=== PATIENT | female | born 1940 | race Caucasian/White ===

== ENCOUNTER 2021-01-09 20:52 | Outpatient (RCR) | payer MEDICARE, OTHER, SELFPAY ==
[2021-01-09] MEDS: COVID-19 VACC, MRNA(PFIZER)/PF 30 MCG/0.3 ML SYRINGE IM (19:08)
[2021-02-09] MEDS: COVID-19 VACC, MRNA(PFIZER)/PF 30 MCG/0.3 ML SYRINGE IM (17:28)
== END 2021-01-09 23:59 ==
LOC: IMMUN 20:52
PROVIDERS: PCP Family Medicine; Visit Provider Family Medicine
DX: Z23 Encounter for immunization (principal)
CPT/HCPCS: 0001A; 0002A; 91300

== ENCOUNTER 2024-02-07 14:36 | Inpatient (IN) | payer MEDICARE, OTHER, SELFPAY ==
[2024-02-07] VITALS (9 sets, daily range): BP systolic 103–131; BP diastolic 55–95; PULSE 59–110; RESP 16–18; TEMP 36.1–36.4; O2SAT 94–100; BMI 17.9; BMI 16.9
--- NOTE | 2024-02-07 14:51 | EDS_ITS ---
HPI History of Present Illness Chief Complaint: General Illness Detail of Chief Complaint: Increased confusion, elevated blood sugars and concern for UTI Informant: patient and family Narrative Narrative: Patient brought to the emergency department with increased weakness and confusion for couple of days. Decreased p.o. intake. Family states that she gets frequent urinary tract infections. Her blood sugar today was over 500 and she does take oral medications. Patient also has history of chronic kidney disease. Family aware that she is getting dehydrated. Patient denies abdominal pain. She denies chest pain. She denies dysuria. PFSH PFS Home Medications alendronate 70 mg tablet 70 mg PO QWEEK 02/07/24 [History Last Taken 02/06/24] fluticasone propionate 50 mcg/actuation nasal spray,suspension 2 spray intranasal DAILY 02/07/24 [History Last Taken 02/06/24] levothyroxine 50 mcg tablet 50 mcg PO DAILY 02/07/24 [History Last Taken 0 02/06/24] lisinopril 2.5 mg tablet 2.5 mg PO DAILY 02/07/24 [History Last Taken 02/06/24] loratadine 10 mg tablet (Allerclear) 10 mg PO DAILY allergy 02/07/24 [History Last Taken 02/06/24] metformin 500 mg tablet 500 mg PO BID 02/07/24 [History Last Taken 02/06/24] metoprolol tartrate 25 mg tablet 12.5 mg PO BID 02/07/24 [History Last Taken 02/06/24] mometasone 0.1 % topical cream 1 applic topical DAILY 02/07/24 [History Last Taken 02/06/24] semaglutide 3 mg tablet (Rybelsus) 3 mg PO DAILY 02/07/24 [History Last Taken 02/06/24] simvastatin 20 mg tablet 20 mg PO QPM 02/07/24 [History Last Taken 02/06/24] Allergy/AdvReac Type Severity Reaction Status Date / Time ciprofloxacin Allergy Unknown Other Verified 02/07/24 14:38 amoxicillin Allergy Rash Verified 02/07/24 14:38 sulfamethoxazole Allergy Rash Verified 02/07/24 14:38 [From Bactrim] trimethoprim [From Bactrim] Allergy Rash Verified 02/07/24 14:38 diphenhydramine AdvReac Itching Verified 02/07/24 14:38 [From Benadryl] Social History Smoking Status: Never smoker ROS ROS ED Review of Systems ROS Unobtainable: other Constitutional Constitutional ED: Reports lethargy; Denies chills, fever(s), sweats or weight loss Eyes Eyes: Denies blurry vision, change in vision or diplopia ENT ENT ED: Denies rhinorrhea or sore throat Cardiovascular Cardiovascular: Denies chest pain, orthopnea or racing heartbeat Respiratory/Chest Respiratory/Chest: Denies cough, dyspnea, dyspnea on exertion, orthopnea or sputum Gastrointestinal Gastrointestinal: Denies abdominal pain, diarrhea, nausea or vomiting Genitourinary Genitourinary ED: Denies dysuria, hematuria or urinary frequency Musculoskeletal Musculoskeletal: Denies arthralgias, back pain, myalgias or neck pain Integumentary Denies abscess, Abrasions or rash Neurologic Neurologic: Reports weakness and other Details: Confusion ; Denies headache(s) Psychiatric Psychiatric: Denies anxiety, depression or suicidal thoughts Endocrine Endocrinology: Denies polydipsia, polyphagia or polyuria Hematologic/Lymphatic Hematologic/Lymphatic: Denies easy bleeding, easy bruising or lymphadenopathy Allergic/Immunologic Allergic/Immunologic ED: Denies mouth swelling, tongue swelling or urticaria EXAM Physical Exam Const Vital Signs: 02/07/24 14:38 02/07/24 16:13 02/07/24 16:51 Temperature 97.3 F L 97.4 F L Temperature Source Temporal Oral Pulse Rate 110 H 83 Respiratory Rate 16 16 Respiratory Effort Normal Non-Labored Respiratory Pattern Normal Blood Pressure 111/95 H 131/59 H Blood Pressure Mean 100 83 Pulse Ox 100 98 Oxygen Delivery Method Room Air Room Air 02/07/24 16:54 02/07/24 16:37 Temperature 97.4 F L Temperature Source Pulse Rate 83 59 L Respiratory Rate 16 16 Respiratory Effort Respiratory Pattern Blood Pressure 131/59 H 131/59 H Blood Pressure Mean 83 83 Pulse Ox 99 94 Oxygen Delivery Method Room Air Positive well nourished and well developed General Appearance ED: well developed and NAD HEENT Reports TM's clear and moist mucous membranes HEENT Narrative: Patient hard of hearing normocephalic and atraumatic; Negative for trauma or tenderness Tympanic Membrane ED: Yes TM's clear Eyes PERRL and EOMs intact bilaterally General Eye ED: Negative for pale conjunctiva or scleral icterus Neck no lymphadenopathy, supple and no JVD General: Negative for tenderness Chest Wall inspection of chest normal and palpation of chest normal Chest: Negative for tenderness Resp normal respiratory effort and clear to auscultation bilaterally Effort and Inspection: Negative for respiratory distress or pain with movement Auscultation: Negative for rhonchi, wheezes or diminished lung sounds Cardio regular rate, regular rhythm, S1 normal heart sound, S2 normal heart sound and no murmurs Peripheral Pulses: pulses 2+ throughout GI normal to inspection, nondistended, normoactive bowel sounds, soft to palpation, non-tender, non-distended and no masses Back/Spine no CVA tenderness and no thoracic nor lumbar tenderness Extremity normal to inspection General Extremety ED: Negative for edema General Extremity: Negative for edema Neuro oriented x3, CN's II-XII intact bilaterally, no sensory deficits noted and gait normal Sensorium / Orientation: awake, alert, oriented to person, oriented to place and oriented to time Motor Exam: strength 5/5 throughout and strength abnormal Psych mental status grossly normal Skin no rashes or lesions noted and no wounds MDM MDM MDM Narrative Medical decision making narrative: Patient presents with generalized weakness and decreased p.o. intake with concern for UTI and dehydration. IV line established. CBC with differential count 15.1 with hemoglobin 12.5 and platelet count of 544. Chemistries showed a low sodium of 123 and a low chloride of 88. BUN 55 and creatinine 2.13. The glucose was 556. Urinalysis was positive for UTI. Urine culture sent. Patient started on Rocephin 1 g IV. Patient was ordered normal saline. Case discussed with hospitalist to evaluate patient for admission. I did give patient 12 units of regular insulin subcu. Lab Data Attestation: I reviewed the patient's lab results. Labs: Laboratory Results - last 24 hr 02/07/24 02/07/24 15:15 15:40 WBC 15.1 H RBC 4.72 Hgb 12.5 Hct 37.5 MCV 79.4 L MCH 26.5 L MCHC 33.3 RDW Std Deviation 39.1 RDW Coeff of Zander 13.5 Plt Count 544 H MPV 8.7 Immature Gran % (Auto) 1.300 H Neut % (Auto) 83.0 H Lymph % (Auto) 7.6 L [place] % (Auto) 7.6 Eos % (Auto) 0.3 Baso % (Auto) 0.2 Absolute Neuts (auto) 12.5 H Absolute Lymphs (auto) 1.15 Nucleated RBC % 0 Sodium 123 L Potassium 4.4 Chloride 88 L Carbon Dioxide 23.0 Anion Gap 12 BUN 55 H Creatinine 2.13 H Est GFR (MDRD) Af Amer 28 L Est GFR (MDRD) Non-Af 24 L BUN/Creatinine Ratio 25.8 H Glucose 556 H* Hemoglobin A1c 13.6 H Lactic Acid 1.7 Calcium 10.3 H Urine Color Yellow Urine Clarity Cloudy Urine pH 5.0 Ur Specific [place] 1.010 Urine Protein 30 H Urine Glucose (UA) 1000 H Urine Ketones 15 H Urine Occult Blood 250 H Urine Nitrite Negative Urine Bilirubin Negative Urine Urobilinogen Normal Ur Leukocyte Esterase 500 H Urine RBC 10-25 SEEN Urine WBC >100 SEEN Ur Squamous Epith Cells 0 SEEN Urine Bacteria 2+ Urine Mucus 0 SEEN Ur Random Sodium 51 Discharge Plan Dx/Rx/DC Orders Clinical Impression: ANJANA (acute kidney injury), Hyperglycemia, Hyponatremia, Acute UTI Disposition Disposition: Acute Care Hospital [facility] Discharge Date/Time: 02/07/24 17:45
[2024-02-07 15:24] LABS: Absolute Lymphocyte Count 1.15 X10^3/uL (0.83-4.51); Absolute Neutrophil Count 12.5 X10^3/uL (2.0-7.7); Basophil# 0.03 X10^3/uL; Basophil% 0.2 % (0-1); Eosinophil# 0.05 X10^3/uL; Eosinophils% 0.3 % (0-5); Hematocrit 37.5 % (37-47); Hemoglobin 12.5 g/dL (12.0-15.0); Lymphocyte # 1.15 X10^3/ul (0.83-4.51); Lymphocyte % 7.6 % (19-41); Mean Corp Hgb Conc 33.3 g/dL (32-36); Mean Corpuscular Hgb 26.5 pg (27.0-32.0); Mean Corpuscular Volume 79.4 fL (81-99); Mean Platelet Vol. 8.7 fl (6.2-12.0); Monocyte# 1.15 X10^3/uL; Monocyte% 7.6 % (0-10); NRBC Flagged by Analyzer 0 % (0-5); Neutrophil # 12.54 X10^3/uL (2.7-7.7); Platelet Count 544 K/mm3 (150-450); RBC Distribution Width CV 13.5 % (11.6-14.6); RBC Distribution Width SD 39.1 fl (35.1-43.9); Red Blood Count 4.72 M/mm3 (4.2-5.4); White Blood Count 15.1 K/mm3 (4.4-11.0)
[2024-02-07 15:52] LABS: Mucous, Urine 0 SEEN /hpf (<or=2+); Squamous Epithelial Cells - UA 0 SEEN /hpf (5-10)
[2024-02-07 15:52] LABS: Anion Gap 12 (5-15); BUN 55 mg/dL (7-18); BUN/Creat Ratio 25.8 RATIO (10-20); Calcium,Total 10.3 mg/dL (8.5-10.1); Chloride 88 mmol/L (98-107); Creatinine, Serum 2.13 mg/dL (0.55-1.02); EST Glomerular Filtration Rate 24 mL/min (>60); Est Glom Filt Rate - Afr Amer 28 mL/min (>60); Glucose 556 mg/dL (74-106); Lactic Acid 1.7 mmol/L (0.4-1.9); Potassium 4.4 mmol/L (3.5-5.1); Sodium Level 123 mmol/L (136-145)
[2024-02-07 15:55] LABS: Color, Urine Yellow (Yellow); Glucose, Dipstick 1000 mg/dl (Normal); Ketone-Dipstick 15 mg/dl (Negative); Leukocyte Esterase-Dipstick 500 /ul (Negative); Nitrite-Dipstick Negative (Negative); Occult Blood-Urine 250 /ul (Negative); Protein-Dipstick 30 mg/dl (Negative); Urine Bilirubin Dipstick Negative (Negative); Urine Clarity Cloudy (Clear); Urine Urobilinogen Normal (Normal)
[2024-02-07 16:05] LABS: Bacteria 2+ /hpf (None Seen); White Blood Cells >100 SEEN /hpf (0-5)
[2024-02-07 16:06] LABS: Red Blood Cells-Urine 10-25 SEEN /hpf (0-5)
--- NOTE | 2024-02-07 16:13 | PCM.HP.STD ---
HPI - General General Date of Admission: 02/07/24 Date of Service: 02/07/24 Chief Complaint: GENERALISED WEAKNESS, CONFUSION HPI Narrative KELSEY PURI, is a 83 F with a PMH as outlined who presents via the ED on 02/07/2024 with a complaint of general illness, increased confusion and concern for UTI. She had been getting more confused and weak at home. Family also noted she was having decreased oral intake. She denied any fever or chills, nausea or vomiting or any other symptoms. Family was concerned she was getting dehydrated. Review of systems was otherwise negative. VItals in the ED were BP of 111/95, IL of 110, RR of 16 and oxygn sats of 100% on room air. CBC showed Hb of 12.5, wbc of 15.1 and platelets of 544. Chemistry showed sodium of 123, potassiuim of 4.4 and Cr of 2.13. Blood glucose was 556 and calcium of 10.3. Urinalysis showed 2+ bacteria. She has been admitted to be managed for hyperglycemia as well as UTI and dehydration. [facility] Home Medications alendronate 70 mg tablet 70 mg PO QWEEK 02/07/24 [History Last Taken 02/06/24] fluticasone propionate 50 mcg/actuation nasal spray,suspension 2 spray intranasal DAILY 02/07/24 [History Last Taken 02/06/24] levothyroxine 50 mcg tablet 50 mcg PO DAILY 02/07/24 [History Last Taken 02/06/24] lisinopril 2.5 mg tablet 2.5 mg PO DAILY 02/07/24 [History Last Taken 02/06/24] loratadine 10 mg tablet (Allerclear) 10 mg PO DAILY 02/07/24 [History Last Taken 02/06/24] metformin 500 mg tablet 500 mg PO BID 02/07/24 [History Last Taken 02/06/24] metoprolol tartrate 25 mg tablet 12.5 mg PO BID 02/07/24 [History Last Taken 02/06/24] mometasone 0.1 % topical cream 1 applic topical DAILY 02/07/24 [History Last Taken 02/06/24] semaglutide 3 mg tablet (Rybelsus) 3 mg PO DAILY 02/07/24 [History Last Taken 02/06/24] simvastatin 20 mg tablet 20 mg PO QPM 02/07/24 [History Last Taken 02/06/24] Allergy/AdvReac Type Severity Reaction Status Date / Time ciprofloxacin Allergy Unknown Other Verified 02/07/24 14:38 amoxicillin Allergy Rash Verified 02/07/24 14:38 sulfamethoxazole Allergy Rash Verified 02/07/24 14:38 [From Bactrim] trimethoprim [From Bactrim] Allergy Rash Verified 02/07/24 14:38 diphenhydramine AdvReac Itching Verified 02/07/24 14:38 [From Benadryl] Social History Smoking Status: Never smoker ROS Review of Systems ROS Unobtainable: Denies due to encephalopathy Constitutional Constitutional: Reports anorexia, chills, fatigue, malaise and weakness; Denies change in weight or fever(s) Eyes Eyes: Denies change in vision ENT HEENT: Denies dysphagia Cardiovascular Cardiovascular: Reports rapid heart rate; Denies chest pain, dyspnea on exertion, edema, lightheadedness, orthopnea, palpitations or paroxysmal nocturnal dyspnea Respiratory/Chest Respiratory/Chest: Denies cough, dyspnea, hemoptysis, productive cough, shortness of breath at rest, shortness of breath with exertion or wheezing Gastrointestinal Gastrointestinal: Denies abdominal pain, constipation, diarrhea, dyspepsia, hematemesis, nausea or vomiting Genitourinary Genitourinary: Reports dysuria and urinary frequency; Denies burning urination, difficulty urinating, hematuria or nocturia Neurologic Neurologic: Reports confusion; Denies disequilibrium, dizziness, focal weakness, headache(s), numbness or paresthesias Psychiatric Psychiatric: Denies anxiety or depression Vital Signs Vital Signs Vital Signs: 02/07/24 14:38 Temperature 97.3 F L Temperature Source Temporal Pulse Rate 110 H Respiratory Rate 16 Blood Pressure 111/95 H Blood Pressure Mean 100 Pulse Ox 100 Oxygen Delivery Method Room Air Weight Weight: 91 lb 7.869 oz Body Mass Index (BMI) 17.9 Physical Exam Const alert and no apparent distress Constitutional Narrative: frail, weak, hard of hearing General Appearance: cooperative HEENT normocephalic, head/scalp atraumatic and oropharynx normal HEENT Narrative: dry oral mucosa Eyes PERRL, EOMs intact bilaterally and conjunctivae normal Neck no lymphadenopathy and supple Resp Resp Narrative: diminished breath sounds bibasally, no wheezes or crackles. On room air. Cardio regular rhythm, S1 normal heart sound, S2 normal heart sound and no murmurs Cardio Narrative: tachycardic GI normal to inspection, nondistended, normoactive bowel sounds, soft to palpation, non-tender and non-distended Extremity normal to inspection, full ROM and no clubbing, cyanosis or edema Neuro CN's II-XII intact bilaterally and moves all extremities Neuro Narrative: very hard of hearing Sensorium / Orientation: awake and alert Psych affect normal Results Lab / Micro Data 02/07/24 15:15 02/07/24 15:15 Labs: Laboratory Results - last 24 hr 02/07/24 15:15: WBC 15.1 H, RBC 4.72, Hgb 12.5, Hct 37.5, MCV 79.4 L, MCH 26.5 L, MCHC 33.3, RDW Std Deviation 39.1, RDW Coeff of Zander 13.5, Plt Count 544 H, MPV 8.7, Immature Gran % (Auto) 1.300 H, Neut % (Auto) 83.0 H, Lymph % (Auto) 7.6 L, [place] % (Auto) 7.6, Eos % (Auto) 0.3, Baso % (Auto) 0.2, Absolute Neuts (auto) 12.5 H, Absolute Lymphs (auto) 1.15, Nucleated RBC % 0, Sodium 123 L, Potassium 4.4, Chloride 88 L, Carbon Dioxide 23.0, Anion Gap 12, BUN 55 H, Creatinine 2.13 H, Est GFR (MDRD) Af Amer 28 L, Est GFR (MDRD) Non-Af 24 L, BUN/Creatinine Ratio 25.8 H, Glucose 556 H*, Lactic Acid 1.7, Calcium 10.3 H 02/07/24 15:40: Urine Color Yellow, Urine Clarity Cloudy, Urine pH 5.0, Ur Specific [place] 1.010, Urine Protein 30 H, Urine Glucose (UA) 1000 H, Urine Ketones 15 H, Urine Occult Blood 250 H, Urine Nitrite Negative, Urine Bilirubin Negative, Urine Urobilinogen Normal, Ur Leukocyte Esterase 500 H, Urine RBC 10-25 SEEN, Urine WBC >100 SEEN, Ur Squamous Epith Cells 0 SEEN, Urine Bacteria 2+, Urine Mucus 0 SEEN Assessment & Plan Assessment/Plan (1) Hyponatremia: (2) Hyperglycemia: (3) Acute UTI: (4) ANJANA (acute kidney injury): PLAN: Plan #Acute encephalopathy Likely multifactorial, due to hypoglycemia, ANJANA and UTI as well as hyponatremia Admitted with a complaint of lethargy and weakness as well as confusion. Blood sugar is 556. Anion gap not elevated with bicarb of 23 and anion gap of 12. Sodium is also 123 and she also has UTI. Admit to PCU. Hydrate aggressively with IV fluids. Started on IV ceftriaxone. Urine cultures ordered. Patient given subcu lispro in the ED. Will recheck blood sugar in an hour. Aggressive fluid hydration should help with hyperglycemia as well. Depending on how sugars trend will determine whether patient needs to be started on insulin drip or otherwise. PT OT consult. Fall precautions. #ANJANA: Patient apparently has a history of CKD and sees a circuit design engineer in [place]. However most recent blood work that patient had with showed that her creatinine was around 1.1. Creatinine here is 2.13. Hydrate with IV fluids and trend creatinine. If creatinine does not improve with hydration as this likely a prerenal ANJANA, will get further workup with urine electrolytes and renal ultrasound. #Hyperglycemia in a known diabetic: Being hydrated with fluids as above. Hold metformin. Continue semaglutide. SQ lispro 20 units x 1. Should improve with aggressive hydration. If not, may consider insulin drip. #UTI: Patient started on IV ceftriaxone. Urine cultures ordered. #Hyponatremia: Sodium is 123 though this is likely pseudohyponatremia in light of hypoglycemia. She is able with IV fluid hydration and resolution of hyperglycemia. If it does not improve we will do further workup with serum osmolality and urine osmolality as well as urine sodium. #Hyperlipidemia: On statin #Hypertension: Hold lisinopril in light of ANJANA. IV hydralazine as needed DVT prophylaxis: Lovenox renally dosed CODE STATUS:full code Patient and daughters counseled extensively about different types of CODE STATUS including full code, DNR CCA and DNR CCA. Patient elects to be full code. Total etob-yw-mdao time 17 minutes. Charges/Coding Visit Charges Inpatient E&M: 65404 Init Hosp L3 Procedures Hospitalists Procedures: 19229 Advncd Care Plan 30 Min
[2024-02-07] MEDS: 0.9% Normal Saline (1000mL) 1,000 ML 150 ML IV ×2 (16:19→22:51)
[2024-02-07] MEDS: Ceftriaxone 1 GM/50 ML BAG IV (16:20)
[2024-02-07] MEDS: Insulin Lispro 100 UNIT/ML INSULN.PEN 12 UNIT SC (16:22)
[2024-02-07] MEDS: Insulin Lispro 100 UNIT/ML INSULN.PEN 10 UNIT SC (17:38)
[2024-02-07 17:47] LABS: Bedside Glucose 421 mg/dL (74-106)
[2024-02-07 18:44] LABS: Hemoglobin A1c 13.6 % (3.8-5.6)
[2024-02-07 19:06] LABS: Bedside Glucose 322 mg/dL (74-106)
[2024-02-07 19:07] LABS: Troponin-I HS 9 pg/mL (3.0-54.0)
[2024-02-07 19:46] LABS: Urine Sodium 51 mmol/L (Not Establ.)
[2024-02-07 21:03] LABS: Troponin-I HS 8 pg/mL (3.0-54.0)
[2024-02-07] MEDS: Metoprolol Tartrate 25 MG Tablet 12.5 MG PO (21:52)
[2024-02-07] MEDS: Atorvastatin Calcium 10 MG Tablet PO (21:52)
[2024-02-07] MEDS: Insulin Lispro 100 UNIT/ML INSULN.PEN SC (22:07)
[2024-02-07 23:47] LABS: Bedside Glucose 282 mg/dL (74-106)
[2024-02-08] VITALS (9 sets, daily range): BP systolic 92–138; BP diastolic 59–77; PULSE 82–94; RESP 16–18; TEMP 36.1–36.6; O2SAT 94–100
[2024-02-08 00:47] LABS: Troponin-I HS 9 pg/mL (3.0-54.0)
[2024-02-08] MEDS: 0.9% Normal Saline (1000mL) 1,000 ML 150 ML IV ×3 (05:54→21:18)
[2024-02-08] MEDS: Levothyroxine 50 MCG Tablet PO (06:14)
[2024-02-08] MEDS: Insulin Lispro 100 UNIT/ML INSULN.PEN SC ×4 (06:18→21:36)
[2024-02-08 06:50] LABS: Bedside Glucose 248 mg/dL (74-106)
[2024-02-08 07:20] LABS: Absolute Lymphocyte Count 1.71 X10^3/uL (0.83-4.51); Absolute Neutrophil Count 13.4 X10^3/uL (2.0-7.7); Basophil# 0.04 X10^3/uL; Basophil% 0.2 % (0-1); Eosinophil# 0.17 X10^3/uL; Hematocrit 34.5 % (37-47); Hemoglobin 11.3 g/dL (12.0-15.0); Lymphocyte # 1.71 X10^3/ul (0.83-4.51); Lymphocyte % 10.1 % (19-41); Mean Corp Hgb Conc 32.8 g/dL (32-36); Mean Corpuscular Hgb 26.4 pg (27.0-32.0); Mean Corpuscular Volume 80.6 fL (81-99); Monocyte# 1.45 X10^3/uL; Monocyte% 8.5 % (0-10); NRBC Flagged by Analyzer 0 % (0-5); Neutrophil # 13.37 X10^3/uL (2.7-7.7); Neutrophil % 78.8 % (47-70); Platelet Count 530 K/mm3 (150-450); RBC Distribution Width CV 13.7 % (11.6-14.6); RBC Distribution Width SD 39.9 fl (35.1-43.9); Red Blood Count 4.28 M/mm3 (4.2-5.4)
[2024-02-08 08:21] LABS: Anion Gap 9 (5-15); BUN 53 mg/dL (7-18); BUN/Creat Ratio 31.5 RATIO (10-20); Calcium,Total 9.2 mg/dL (8.5-10.1); Chloride 101 mmol/L (98-107); Creatinine, Serum 1.68 mg/dL (0.55-1.02); EST Glomerular Filtration Rate 31 mL/min (>60); Est Glom Filt Rate - Afr Amer 37 mL/min (>60); Estimated Creatinine Clearance 15.82 ml/min; Glucose 269 mg/dL (74-106); Potassium 4.1 mmol/L (3.5-5.1); Sodium Level 131 mmol/L (136-145)
[2024-02-08] MEDS: Metoprolol Tartrate 25 MG Tablet 12.5 MG PO ×2 (09:38→21:32)
[2024-02-08] MEDS: Loratadine 10 MG Tablet PO (09:38)
[2024-02-08] MEDS: Fluticasone 0.05% 1 SPRAY NASAL.SRY 2 SPRAY NASAL (09:38)
[2024-02-08] MEDS: Enoxaparin 30 MG/0.3 ML Syringe SC (09:39)
[2024-02-08] MEDS: Ceftriaxone 1 GM/50 ML BAG IV (09:45)
--- NOTE | 2024-02-08 09:46 | PN_ITS ---
Subjective Subjective Patient seem and examined. She was sleeping and therefore couldnt do any review of systems. She has remained hemodynamically stable. Objective Data Objective Data Vital Signs: Vital Signs Temp Pulse Resp BP Pulse Ox O2 Del Method 97.8 F 83 18 135/63 H 97 Room Air 02/08/24 09:30 02/08/24 09:30 02/08/24 09:30 02/08/24 09:30 02/08/24 09:30 02/08/24 09:30 Oxygen Delivery Method Room Air Weight: 87 lb 1.321 oz Body Mass Index (BMI) 16.9 Intake & Output: Intake and Output for Last 24 Hours 02/06/24 02/07/24 02/08/24 23:59 23:59 23:59 Intake Total 1050 / 1450 1400 / 1400 Balance 1050 / 1450 1400 / 1400 Lab / Micro Data 02/08/24 06:19 02/08/24 06:19 Labs: Laboratory Results - last 24 hr 02/07/24 15:15: WBC 15.1 H, RBC 4.72, Hgb 12.5, Hct 37.5, MCV 79.4 L, MCH 26.5 L , MCHC 33.3, RDW Std Deviation 39.1, RDW Coeff of [place]ander 13.5, Plt Count 544 H, MPV 8.7, Immature Gran % (Auto) 1.300 H, Neut % (Auto) 83.0 H, Lymph % (Auto) 7.6 L, [place] % (Auto) 7.6, Eos % (Auto) 0.3, Baso % (Auto) 0.2, Absolute Neuts (auto) 12.5 H, Absolute Lymphs (auto) 1.15, Nucleated RBC % 0, Sodium 123 L, Potassium 4.4, Chloride 88 L, Carbon Dioxide 23.0, Anion Gap 12, BUN 55 H, Creatinine 2.13 H, Est GFR (MDRD) Af Amer 28 L, Est GFR (MDRD) Non-Af 24 L, BUN/Creatinine Ratio 25.8 H, Glucose 556 H*, Hemoglobin A1c 13.6 H, Lactic Acid 1.7, Calcium 10.3 H 02/07/24 15:40: Urine Color Yellow, Urine Clarity Cloudy, Urine pH 5.0, Ur S pecific [place] 1.010, Urine Protein 30 H, Urine Glucose (UA) 1000 H, Urine Ketones 15 H, Urine Occult Blood 250 H, Urine Nitrite Negative, Urine Bilirubin Negative, Urine Urobilinogen Normal, Ur Leukocyte Esterase 500 H, Urine RBC 10- 25 SEEN, Urine WBC >100 SEEN, Ur Squamous Epith Cells 0 SEEN, Urine Bacteria 2+, Urine Mucus 0 SEEN, Ur Random Sodium 51 02/07/24 17:29: POC Glucose 421 H 02/07/24 18:40: Troponin I High Sens 9 02/07/24 18:45: POC Glucose 322 H 02/07/24 20:35: Troponin I High Sens 8 02/07/24 21:59: POC Glucose 282 H 02/08/24 00:18: Troponin I High Sens 9 02/08/24 06:15: POC Glucose 248 H 02/08/24 06:19: WBC 17.0 H, RBC 4.28, Hgb 11.3 L, Hct 34.5 L, MCV 80.6 L, MCH 26.4 L, MCHC 32.8, RDW Std Deviation 39.9, RDW Coeff of [place] 13.7, Plt Count 530 H, MPV 9.0, Immature Gran % (Auto) 1.400 H, Neut % (Auto) 78.8 H, Lymph % (Auto) 10.1 L, [place] % (Auto) 8.5, Eos % (Auto) 1.0, Baso % (Auto) 0.2, Absolute Neuts (auto) 13.4 H, Absolute Lymphs (auto) 1.71, Nucleated RBC % 0, Sodium 131 L, Potassium 4.1, Chloride 101, Carbon Dioxide 21.0, Anion Gap 9, BUN 53 H, Creatinine 1.68 H, Estim Creat Clear Calc 15.82, Est GFR (MDRD) Af Amer 37 L, Est GFR (MDRD) Non-Af 31 L, BUN/Creatinine Ratio 31.5 H, Glucose 269 H, Calcium 9.2 Physical Exam Const Constitutional Narrative: sleeping comfortably Orientation / Consciousness: lethargic HEENT normocephalic, head/scalp atraumatic and oropharynx normal Eyes PERRL, EOMs intact bilaterally and conjunctivae normal Neck no lymphadenopathy and supple Resp Resp Narrative: diminished breath sounds bibasally, no wheezes or crackles. On room air. Cardio regular rhythm, S1 normal heart sound, S2 normal heart sound and no murmurs Cardio Narrative: tachycardic GI normal to inspection, nondistended, normoactive bowel sounds, soft to palpation, non-tender and non-distended Extremity normal to inspection and no clubbing, cyanosis or edema Neuro CN's II-XII intact bilaterally Neuro Narrative: drowsy Assessment & Plan Assessment/Plan (1) Hyponatremia: (2) Hyperglycemia: (3) Acute UTI: (4) ANJANA (acute kidney injury): PLAN: Plan #Acute encephalopathy * Likely multifactorial, due to hypoglycemia, ANJANA and UTI as well as hyponatremia * Admitted with a complaint of lethargy and weakness as well as confusion. * Blood sugar is 556. Anion gap not elevated with bicarb of 23 and anion gap of 12. * Sodium is also 123 and she also has UTI. * on IV ceftriaxone. Urine cultures pending * sodium is up to 131. WIll dc IVF * PT/OT on board. Fall precautions * * * #ANJANA: * Cr is down to 1.68, from 2.13 on admission. * continue gentle hyration with IVF. * baseline Cr is ~ 1.1 from labs done in December 2023 at her PCP's; family had the records. * #Hyperglycemia in a known diabetic: * blood glucose is now 269. * on semaglutide * A1C is 13.6. * patient started on lantus 10 units daily * conitnue semaglutide. Resume metformin once ANJANA has resolved. * Being hydrated with fluids as above. * Hold metformin. * Continue semaglutide. * SQ lispro 20 units x 1. Should improve with aggressive hydration. If not, may consider insulin drip. #UTI: on IV ceftriaxone. Urine cultures and blood cultures ordered. #Hyponatremia: * Resolving. Sodium was 123 and now 131 today after IV fluids. * Will decrease the rate of the normal saline. #Hyperlipidemia: On statin #Hypertension: Hold lisinopril in light of ANJANA. IV hydralazine as needed DVT prophylaxis: Lovenox renally dosed CODE STATUS:full code * Charges/Coding Visit Charges Inpatient E&M: 05873 Subs Hosp L2
[2024-02-08] MEDS: Insulin Glargine-YFGN 100 UNIT/ML Pen 10 UNIT SC (09:47)
[2024-02-08] MEDS: SEMAGLUTIDE 3 MG PO (10:23)
[2024-02-08 12:26] LABS: Bedside Glucose 378 mg/dL (74-106)
[2024-02-08] MEDS: Glucerna Shake 120 ML LIQUID PO ×3 (14:23→21:20)
[2024-02-08 16:59] LABS: Bedside Glucose 301 mg/dL (74-106)
[2024-02-08] MEDS: Atorvastatin Calcium 10 MG Tablet PO (21:19)
[2024-02-08 23:19] LABS: Bedside Glucose 357 mg/dL (74-106)
[2024-02-09] VITALS (9 sets, daily range): BP systolic 111–128; BP diastolic 56–71; PULSE 80–93; RESP 16–18; TEMP 36.4–37.1; O2SAT 95–100
[2024-02-09] MEDS: 0.9% Normal Saline (1000mL) 1,000 ML 150 ML IV (04:08)
[2024-02-09] MEDS: Levothyroxine 50 MCG Tablet PO (06:22)
[2024-02-09] MEDS: Insulin Lispro 100 UNIT/ML INSULN.PEN SC ×4 (06:22→21:28)
[2024-02-09 07:06] LABS: Absolute Lymphocyte Count 1.74 X10^3/uL (0.83-4.51); Absolute Neutrophil Count 10.7 X10^3/uL (2.0-7.7); Basophil# 0.04 X10^3/uL; Basophil% 0.3 % (0-1); Eosinophil# 0.24 X10^3/uL; Eosinophils% 1.7 % (0-5); Hematocrit 35.5 % (37-47); Hemoglobin 11.4 g/dL (12.0-15.0); Lymphocyte # 1.74 X10^3/ul (0.83-4.51); Lymphocyte % 12.4 % (19-41); Mean Corp Hgb Conc 32.1 g/dL (32-36); Mean Corpuscular Hgb 26.2 pg (27.0-32.0); Mean Corpuscular Volume 81.6 fL (81-99); Mean Platelet Vol. 9.1 fl (6.2-12.0); Monocyte# 1.07 X10^3/uL; Monocyte% 7.6 % (0-10); NRBC Flagged by Analyzer 0 % (0-5); Neutrophil # 10.69 X10^3/uL (2.7-7.7); Neutrophil % 76.1 % (47-70); Platelet Count 523 K/mm3 (150-450); RBC Distribution Width CV 13.7 % (11.6-14.6); RBC Distribution Width SD 40.7 fl (35.1-43.9); Red Blood Count 4.35 M/mm3 (4.2-5.4)
[2024-02-09 07:21] LABS: Bedside Glucose 257 mg/dL (74-106)
[2024-02-09 07:28] LABS: Anion Gap 10 (5-15); BUN 39 mg/dL (7-18); BUN/Creat Ratio 27.1 RATIO (10-20); Calcium,Total 8.5 mg/dL (8.5-10.1); Chloride 105 mmol/L (98-107); Creatinine, Serum 1.44 mg/dL (0.55-1.02); EST Glomerular Filtration Rate 37 mL/min (>60); Est Glom Filt Rate - Afr Amer 45 mL/min (>60); Estimated Creatinine Clearance 18.46 ml/min; Glucose 267 mg/dL (74-106); Potassium 3.8 mmol/L (3.5-5.1); Sodium Level 135 mmol/L (136-145)
--- NOTE | 2024-02-09 08:36 | PCM.PN.HOSP ---
Reason for Visit Reason for Visit: Generalized weakness/confusion Subjective Subjective Patient is an 83-year-old white female who presented to the emergency department at [facility] on 02/07/2024 with generalized weakness and confusion. Per family report on presentation emergency department she had been getting more confused and weak at home. She was also having decreased oral intake. She denied any fevers or chills, nausea or vomiting but family was concerned she was getting dehydrated. Vital signs on presentation were only significant for mild tachycardia with a heart rate of 110. CBC showed a leukocytosis with a white count of 15 and thrombocytopenia ptosis with a platelet count of 544,000. She had significant hyponatremia with a sodium of 123 and a serum creatinine of 2.13 with an unknown baseline. Blood glucose was 556 and her calcium was 10.3. Her urinalysis was suggestive of infection. She was admitted to the PCU for ongoing monitoring due to her severe hyponatremia on presentation and she was started on an antibiotics and IV fluids. Patient is at bedside and very hard of hearing however family is at the bedside and reports that she is back to baseline. The plan is to take her home. We did discuss that she will need to go home on insulin as her blood sugars are markedly out of control and this may be contributing to her frequent UTIs. We did also discuss that it was likely multifactorial but improving her glycemic control could contribute to decreasing her frequency of urinary tract infections. Family will need to be educated in insulin dosing and this was discussed with family. Bedside nurse is going to teach family and insulin injection today. Objective Data Objective Data Vital Signs: Vital Signs Temp Pulse Resp BP Pulse Ox O2 Del Method 97.5 F L 80 16 128/58 H 95 Room Air 02/09/24 04:04 02/09/24 04:04 02/09/24 04:04 02/09/24 04:04 02/09/24 08:18 02/09/24 08:18 Oxygen Delivery Method Room Air Weight: 39.5 kg Body Mass Index (BMI) 16.9 Intake & Output: Intake and Output for Last 24 Hours 02/07/24 02/08/24 02/09/24 23:59 23:59 23:59 Intake Total 1050 / 1450 3930 / 3930 1050 / 1050 Output Total 400 / 600 500 / 500 Balance 1050 / 1450 3530 / 3330 550 / 550 Medical Nutrition Assessment Dietitian: Malnutrition Criteria Met Start: 02/08/24 11:15 Freq: Status: Active Protocol: Document 02/08/24 11:15 EDUARDO (Rec: 02/08/24 11:15 SLA [id number]) Nutrition Malnutrition Evidence of Malnutrition Exists Yes Malnutrition (severe): Acute Illness/Injury Evidenced By Suboptimal Energy Intake ( Severe),Weight Loss (Severe) Clinical Problem Acute Disease or Injury Related Malnutrition Etiology Pt with increased confusion resulting in decreased energy intake Signs/Symptoms as evidenced by 6.6% unintended wt loss x < 1 month and 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; 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 Problem Recommendation Dietitian Recommendations/Changes Will change diet to 1600 mira No Added Salt to better meet pt est nutritional needs Will order 4 oz glucerna shake 4x/day w/ medpass for increased nutrition if consumed Lab / Micro Data 02/09/24 06:14 02/09/24 06:14 Labs: Laboratory Results - last 24 hr 02/08/24 12:02: POC Glucose 378 H 02/08/24 16:09: POC Glucose 301 H 02/08/24 21:36: POC Glucose 357 H 02/09/24 06:14: WBC 14.0 H, RBC 4.35, Hgb 11.4 L, Hct 35.5 L, MCV 81.6, MCH 26.2 L, MCHC 32.1, RDW Std Deviation 40.7, RDW Coeff of Zander 13.7, Plt Count 523 H, MPV 9.1, Immature Gran % (Auto) 1.900 H, Neut % (Auto) 76.1 H, Lymph % (Auto) 12.4 L, [place] % (Auto) 7.6, Eos % (Auto) 1.7, Baso % (Auto) 0.3, Absolute Neuts (auto) 10.7 H, Absolute Lymphs (auto) 1.74, Nucleated RBC % 0, Sodium 135 L, Potassium 3.8, Chloride 105, Carbon Dioxide 20.0 L, Anion Gap 10, BUN 39 H, Creatinine 1.44 H, Estim Creat Clear Calc 18.46, Est GFR (MDRD) Af Amer 45 L, Est GFR (MDRD) Non-Af 37 L, BUN/Creatinine Ratio 27.1 H, Glucose 267 H, Calcium 8.5 02/09/24 06:21: POC Glucose 257 H Micro: Microbiology 02/07/24 15:40 Urine, Catheterized Urine Culture - Preliminary Gram negative thony Physical Exam Const alert, oriented x3 and no apparent distress; Negative for average body habitus, healthy appearing or well nourished Constitutional Narrative: Thin, elderly, hard of hearing, white female, sitting up in a chair at the bedside, appears comfortable and nontoxic, family at the bedside and states she is back to her baseline HEENT head/scalp atraumatic and moist oral mucous membranes HEENT Narrative: Dentition is poor, Mallampati is 1, no thrush, temporal wasting noted Head and Scalp: normocephalic Resp normal respiratory effort, no retractions, no use of accessory muscles and clear to auscultation bilaterally Auscultation: Negative for rales, rhonchi or wheezes Cardio regular rate, regular rhythm, S1 normal heart sound, S2 normal heart sound, no murmurs, no rub, no gallops and no clicks GI normal to inspection, nondistended, normoactive bowel sounds, soft to palpation and non-tender Extremity no clubbing, cyanosis or edema Extremity Narrative: Decreased lean muscle mass, pedal pulses and radial pulses are 2+ Neuro oriented x3, moves all extremities and no focal motor deficits Speech: speech normal Psych affect normal Psych Narrative: Eye contact is good and patient interacts appropriately however is markedly hard of hearing Assessment & Plan Assessment/Plan (1) Elevated serum creatinine: (2) Hyperglycemia: (3) Hyponatremia: (4) Acute UTI: (5) Toxic metabolic encephalopathy: (6) Severe malnutrition: PLAN: Plan Acute urinary tract infection -Urine analysis is suggestive of infection -Culture shows gram-negative rods -Continue ceftriaxone -Await identification and sensitivities and will transition to oral antibiotics Elevated serum creatinine -Unable to declare this as ANJANA as baseline is unclear -Serum creatinine on admission was 2.13 -Down to 1.44 today -Will stop IV fluids and monitor clinically Toxic/metabolic encephalopathy -Secondary to the above -Slowly improving -Continue to monitor DM-2 uncontrolled with hyperglycemia -Hemoglobin A1c was 13.6 on admission -Increase Lantus from 10 to 20 units as fasting blood sugar is still greater than 200 -Add Humalog 3 times daily 6 units -Continue SSI -Accu-Cheks as ordered -Continue carb controlled diet -Home oral agents are on hold Hyponatremia -Component of pseudohyponatremia on admission is blood glucose was greater than 500 -Significantly improved -Will stop IV fluids and continue to monitor Severe malnutrition -Dietitian is following-appreciate input -Continue supplements as added -Liberalize diet as able Hypothyroidism -Continue home levothyroxine Hypertension -Lisinopril on hold due to elevated creatinine on admission -Continue home metoprolol -Overall blood pressures appear to be well-controlled Seasonal allergies -Continue home mometasone -Continue home fluticasone nasal spray Hyperlipidemia -Continue home simvastatin Osteoporosis -Restart home alendronate at discharge DVT prophylaxis -Continue enoxaparin 30 mg subcu daily CODE STATUS -full code as verified on admission Charges/Coding Visit Charges Inpatient E&M: 19758 Subs Hosp L2
[2024-02-09] MEDS: Glucerna Shake 120 ML LIQUID PO ×3 (09:52→21:21)
[2024-02-09] MEDS: Fluticasone 0.05% 1 SPRAY NASAL.SRY 2 SPRAY NASAL (09:52)
[2024-02-09] MEDS: Ceftriaxone 1 GM/50 ML BAG IV (09:53)
[2024-02-09] MEDS: Metoprolol Tartrate 25 MG Tablet 12.5 MG PO ×2 (09:53→21:22)
[2024-02-09] MEDS: Enoxaparin 30 MG/0.3 ML Syringe SC (09:53)
[2024-02-09] MEDS: SEMAGLUTIDE 3 MG PO (09:54)
--- NOTE | 2024-02-09 11:30 | CASEMGMT ---
RN CM Assessment Face to Face with patient for initial transition planning/care coordination assessment. Pt is currently sleeping in the chair and pt daughter (Audrey) at bedside. RN CM introduced self and role at [facility], pt daughter voices understanding. Audrey states that this RN CM can ask the questions for initial assessment to her. Care providers, pharmacy, and demographics verified. Admitting dx: Acute Encephalopathy, Hyperglycemia, UTI PCP: Chad Curtis Specialists: [employer] in [place]. Dr. Zhang Meza - Senior Quality Manager in [place] Preferred Pharmacy: [facility] Insurance: [employer] A/B, [employer] Prescription Benefit: Yes LNOK: Audrey Velasco (Daughter) Living Arrangements: Pt lives with 2 of her daughters (third daughter lives close by as well) in a split level home with HR with 3 steps to enter the home. ADLs/IADLs: Pt is ind at baseline and has many resources to assist if needed. See below. Transportation: Pt daughters DME: [employer] and enough supplies. Cane and walker at home but does not normally use. Pulse Ox. BP Cuff. Access to a shower chair if needed per the pt family. HHC/SNF: denies history or needs Pt?s goal: Home Plan: Pt 6-Click score is 18. PT is recommending home PT. At this time, the pt daughter states that the pt will not want anything set up and is against having people come to the house. Pt daughter states that she and the other daughters will help with exercises for the pt. Pt daughter states that the pt cousin and GD are nurses and are able to help care for the pt as well. At this time, it appears that the pt will be home no needs as the pt has many resources at home. CM to follow for safe DC from [facility]. Rasta Daniel RN, CM
[2024-02-09] MEDS: Insulin Lispro 100 UNIT/ML INSULN.PEN 6 UNIT SC ×2 (11:42→16:34)
[2024-02-09] MEDS: Insulin Glargine-YFGN 100 UNIT/ML Pen 20 UNIT SC (11:43)
[2024-02-09 12:03] LABS: Bedside Glucose 258 mg/dL (74-106)
[2024-02-09] MEDS: Nitrofurantoin Macrocrystals 100 MG Capsule PO ×2 (14:57→21:23)
--- NOTE | 2024-02-09 15:31 | CASEMGMT ---
Advance Directive Validation: Pt reported to nursing upon admission that she does not have either document. Urbano Clinton RN ACM
[2024-02-09] MEDS: Atorvastatin Calcium 10 MG Tablet PO (21:22)
[2024-02-09 21:51] LABS: Bedside Glucose 360 mg/dL (74-106)
[2024-02-09 22:30] LABS: Bedside Glucose 251 mg/dL (74-106)
[2024-02-10] VITALS (8 sets, daily range): BP systolic 125–156; BP diastolic 59–79; PULSE 86–102; RESP 12–14; TEMP 36.1–36.8; O2SAT 97–99
[2024-02-10] MEDS: Alendronate Sodium 70 MG Tablet PO (05:54)
[2024-02-10] MEDS: Levothyroxine 50 MCG Tablet PO (05:54)
[2024-02-10 06:30] LABS: Absolute Lymphocyte Count 1.72 X10^3/uL (0.83-4.51); Absolute Neutrophil Count 10.8 X10^3/uL (2.0-7.7); Basophil# 0.08 X10^3/uL; Basophil% 0.6 % (0-1); Eosinophil# 0.25 X10^3/uL; Eosinophils% 1.7 % (0-5); Hematocrit 35.5 % (37-47); Hemoglobin 11.5 g/dL (12.0-15.0); Lymphocyte # 1.72 X10^3/ul (0.83-4.51); Lymphocyte % 11.9 % (19-41); Mean Corp Hgb Conc 32.4 g/dL (32-36); Mean Corpuscular Hgb 26.4 pg (27.0-32.0); Mean Corpuscular Volume 81.4 fL (81-99); Mean Platelet Vol. 8.6 fl (6.2-12.0); Monocyte# 1.14 X10^3/uL; Monocyte% 7.9 % (0-10); NRBC Flagged by Analyzer 0 % (0-5); Neutrophil # 10.83 X10^3/uL (2.7-7.7); Neutrophil % 75.1 % (47-70); Platelet Count 479 K/mm3 (150-450); RBC Distribution Width CV 13.9 % (11.6-14.6); RBC Distribution Width SD 41.4 fl (35.1-43.9); Red Blood Count 4.36 M/mm3 (4.2-5.4); White Blood Count 14.4 K/mm3 (4.4-11.0)
[2024-02-10 08:16] LABS: Bedside Glucose 244 mg/dL (74-106)
[2024-02-10] MEDS: Enoxaparin 30 MG/0.3 ML Syringe SC (08:43)
[2024-02-10] MEDS: Fluticasone 0.05% 1 SPRAY NASAL.SRY 2 SPRAY NASAL (08:44)
[2024-02-10] MEDS: Nitrofurantoin Macrocrystals 100 MG Capsule PO (08:44)
[2024-02-10] MEDS: Loratadine 10 MG Tablet PO (08:44)
[2024-02-10] MEDS: SEMAGLUTIDE 3 MG PO (08:44)
[2024-02-10] MEDS: Metoprolol Tartrate 25 MG Tablet 12.5 MG PO ×2 (08:44→20:58)
[2024-02-10] MEDS: Insulin Glargine-YFGN 100 UNIT/ML Pen 20 UNIT SC (08:48)
[2024-02-10] MEDS: Insulin Lispro 100 UNIT/ML INSULN.PEN SC ×4 (08:49→20:59)
[2024-02-10] MEDS: Insulin Lispro 100 UNIT/ML INSULN.PEN 6 UNIT SC ×3 (08:49→16:55)
[2024-02-10] MEDS: Glucerna Shake 120 ML LIQUID PO (08:54)
[2024-02-10 11:44] LABS: Bedside Glucose 295 mg/dL (74-106)
[2024-02-10] MEDS: FOSFOMYCIN TROMETHAMINE 3 GM PACKET PO (12:47)
--- NOTE | 2024-02-10 13:42 | DS.PCM_ITS ---
Providers Date of Admission: 02/07/24 Date of Discharge: 02/10/24 Primary Care Physician: Dr. Chad Curtis MD Reason For Visit: ACUTE ENCEPHALOPATHY, HYPERGLYCEMIA, UTI Diagnosis Discharge Diagnosis (1) Elevated serum creatinine: Status: Acute Code(s): R79.89 - Other specified abnormal findings of blood chemistry (2) Hyperglycemia: Status: Acute Code(s): R73.9 - Hyperglycemia, unspecified (3) Hyponatremia: Status: Acute Code(s): E87.1 - Hypo-osmolality and hyponatremia (4) Acute UTI: Status: Acute Code(s): N39.0 - Urinary tract infection, site not specified (5) Toxic metabolic encephalopathy: Status: Acute Code(s): G92.8 - Other toxic encephalopathy (6) Severe malnutrition: Status: Acute Code(s): E43 - Unspecified severe protein-calorie malnutrition Medications at Discharge Home Medications alendronate 70 mg tablet 70 mg PO QWEEK 02/07/24 fluticasone propionate 50 mcg/actuation nasal spray,suspension 2 spray intranasal DAILY 02/07/24 levothyroxine 50 mcg tablet 50 mcg PO DAILY 02/07/24 lisinopril 2.5 mg tablet 2.5 mg PO DAILY 02/07/24 metoprolol tartrate 25 mg tablet 12.5 mg PO BID 02/07/24 mometasone 0.1 % topical cream 1 applic topical DAILY 02/07/24 semaglutide 3 mg tablet (Rybelsus) 3 mg PO DAILY 02/07/24 simvastatin 20 mg tablet 20 mg PO QPM 02/07/24 insulin glargine-yfgn 100 unit/mL (3 mL) subcutaneous pen 30 unit (0.3 mL) s ubcut DAILY #15 mL 02/10/24 insulin lispro 100 unit/mL subcutaneous pen (Humalog KwikPen (U-100) Insulin) 10 unit (0.1 mL) subcut TIDAC #15 mL 02/10/24 pen needle, diabetic 30 gauge x 5/16 (Pen Needle) #1,200 ea 02/10/24 Hospital Course Summary of Care Provided Hospital Course: Mrs. Velasco is an 83-year-old white female who presented to the emergency department at [facility] on 02/07/2024 with generalized weakness and confusion. Per family report on presentation emergency department she had been getting more confused and weak at home. She was also having decreased oral intake. She denied any fevers or chills, nausea or vomiting but family was concerned she was getting dehydrated. Vital signs on presentation were only significant for mild tachycardia with a heart rate of 110. CBC showed a leukocytosis with a white count of 15 and thrombocytopenia ptosis with a platelet count of 544,000. She had significant hyponatremia with a sodium of 123 and a serum creatinine of 2.13 with an unknown baseline. Blood glucose was 556 and her calcium was 10.3. Her urinalysis was suggestive of infection. She was admitted to the PCU for ongoing monitoring due to her severe hyponatremia on presentation and she was started on an antibiotics and IV fluids. Her urine culture did show Enterobacter cloacae that was resistant to cefazolin. She was initially on ceftriaxone but we completed her antibiotic course with fosfomycin due to her antibiotic allergies and her overall comorbidities including CKD. Her mental status improved back to baseline after about 24 hours admission when she was on antibiotics and we improved her glycemic control. Her hemoglobin A1c was found to be markedly elevated at greater than 13. She was only taking metformin at home for this. I discussed extensively with family the importance of improved glycemic control and prevention of her infection as well as maintaining a normal baseline with regards to her mentation and we started insulin. Family was instructed in insulin dosing as she lives with them and they are there to supervise her on a 24-hour basis. At the time of discharge we had her on Lantus 30 units subcu daily and Humalog 10 units 3 times daily with meals. I have asked that she keep a blood sugar log with checking her blood sugars 4 times a day for now until she can follow-up with endocrinology. I did refer her to endocrinology at the time of discharge. Her renal function did improve and was 1.32 at the time of discharge. Her baseline is still unclear however I suspect we are closer to baseline at this time. I do anticipate that her renal dysfunction on presentation was related to an osmotic diuresis with her marked hyperglycemia. Blood cultures were negative at 48 hours. She was seen by physical and Occupational Therapy and they recommended ongoing home health however she deferred indicating her family was there. She did want a walker which we were able to get for her at the time of discharge. Prescriptions for pen needles, basal insulin, and bolus insulin were sent to the local pharmacy at the time of discharge. The patient did indicate she has a glucometer and testing supplies at home and did not need any more of these at the time of discharge. Of asked her to follow-up with her primary care physic ethan within the next week and a call Dr. Desouza's office at the time of discharge to set up an outpatient appointment at Dr. Desouza's soonest availability. She is able to be discharged home in stable condition with family on 02/10/2024. Discharge diagnoses: Enterobacter UTI-treatment completed Elevated serum creatinine-suspect some baseline CKD however baseline is unknown and serum creatinine is improving Toxic/metabolic encephalopathy-resolved Uncontrolled DM-2 with hyperglycemia Hyponatremia-resolved Severe malnutrition Hypothyroidism Hypertension Seasonal allergies Hyperlipidemia Osteoporosis Physical Exam Const alert, oriented x3, no apparent distress and no limitations; Negative for average body habitus, healthy appearing or well nourished Constitutional Narrative: Thin, elderly, hard of hearing, white female, sitting up in a chair at the bedside, appears comfortable and nontoxic, family at the bedside and states she is back to her baseline General Appearance: cooperative, comfortable, well kempt and well developed Orientation / Consciousness: awake, oriented to person, oriented to place, oriented to time and lethargic Exam Limitations: no limitations Nutritional Appearance: thin HEENT normocephalic, head/scalp atraumatic and moist oral mucous membranes; Negative for hearing grossly normal bilaterally HEENT Narrative: Patient is poor, Mallampati is 1, no thrush, patient is extremely hard of hearing Eyes PERRL, EOMs intact bilaterally and conjunctivae normal Eyes Narrative: No scleral icterus Neck no lymphadenopathy and supple Neck Narrative: Trachea midline, no thyroid enlargement Resp normal respiratory effort, no retractions, no use of accessory muscles and clear to auscultation bilaterally Auscultation: Negative for rales, rhonchi or wheezes Cardio regular rate, regular rhythm, S1 normal heart sound, S2 normal heart sound, no murmurs, no rub, no gallops and no clicks GI normal to inspection, nondistended, normoactive bowel sounds, soft to palpation and non-tender Extremity no clubbing, cyanosis or edema Extremity Narrative: Decreased lean muscle mass, pedal pulses and radial pulses are 2+ Skin no wounds, skin turgor normal and no jaundice Skin Narrative: Few scattered ecchymosis, no significant wounds or lesions Neuro oriented x3, CN's II-XII intact bilaterally, moves all extremities and no focal motor deficits Speech: speech normal Psych affect normal Psych Narrative: Eye contact is good and patient interacts appropriately however is markedly hard of hearing Medical Records Data Medical Nutrition Assessment Dietitian: Malnutrition Criteria Met Start: 02/08/24 11:15 Freq: Status: Active Protocol: Document 02/08/24 11:15 EDUARDO (Rec: 02/08/24 11:15 [facility] [id number]) Nutrition Malnutrition Evidence of Malnutrition Exists Yes Malnutrition (severe): Acute Illness/Injury Evidenced By Suboptimal Energy Intake ( Severe),Weight Loss (Severe) Clinical Problem Acute Disease or Injury Related Malnutrition Etiology Pt with increased confusion resulting in decreased energy intake Signs/Symptoms as evidenced by 6.6% unintended wt loss x < 1 month and 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; 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 Problem Recommendation Dietitian Recommendations/Changes Will change diet to 1600 mira No Added Salt to better meet pt est nutritional needs Will order 4 oz glucerna shake 4x/day w/ medpass for increased nutrition if consumed Weight / BMI Weight Weight: 39.5 kg Body Mass Index (BMI) 16.9 ABG / Lab / Microbiology Data 02/10/24 06:15 02/09/24 06:14 Laboratory: Laboratory Results - last 24 hr 02/09/24 16:27: POC Glucose 251 H 02/09/24 21:27: POC Glucose 360 H 02/10/24 06:15: WBC 14.4 H, RBC 4.36, Hgb 11.5 L, Hct 35.5 L, MCV 81.4, MCH 26.4 L, MCHC 32.4, RDW Std Deviation 41.4, RDW Coeff of Zander 13.9, Plt Count 479 H, MPV 8.6, Immature Gran % (Auto) 2.800 H, Neut % (Auto) 75.1 H, Lymph % (Auto) 11.9 L, [place] % (Auto) 7.9, Eos % (Auto) 1.7, Baso % (Auto) 0.6, Absolute Neuts (auto) 10.8 H, Absolute Lymphs (auto) 1.72, Nucleated RBC % 0 02/10/24 07:57: POC Glucose 244 H 02/10/24 11:24: POC Glucose 295 H Microbiology: Microbiology 02/07/24 15:40 Urine, Catheterized Urine Culture - Preliminary Enterobacter cloacae complex Gram negative thony 02/07/24 15:15 Blood Culture (Wb) - Anticubital Right Blood Culture - Preliminary No growth in 48 hours. D/C Instructions Discharge Diet: 1800 Calorie Control Diet Discharge Activity: Return to Normal Activity Meaningful Use Info Meaningful Use Diagnoses (Choose all that apply): None applicable Discharge Plan Admission Admit Date/Time: 02/07/24 17:03 Primary Reason for Your Visit: Generalized weakness/confusion Attending Provider: Eileen Wharton Primary Care Provider: Chad Curtis Consulting Providers: Sejal Wagner Instructions Additional Instructions / Restrictions: 1. We suspect your confusion on admission was from your blood sugars being high and a urinary tract infection 2 your urinary tract infection has been treated and you no longer need any antibiotics 3. As we discussed you will go home on insulin as your blood sugars are very poorly controlled. Please check your blood sugars in the morning before you eat, at lunch before you eat, at dinner before you eat, and at bedtime. Please record these and take them to your first appointment with endocrinology-Dr. Desouza. 4. Please call Dr. Desouza's office later today or tomorrow to set up an appo intment to be seen at her first availability Discharge Orders/Prescriptions Prescriptions: New insulin glargine-yfgn 100 unit/mL (3 mL) Insulin Pen 30 unit subcut DAILY Qty: 15 1RF insulin lispro [Humalog KwikPen Insulin] 100 unit/mL Insulin Pen 10 unit subcut TIDAC Qty: 15 1RF (DME) pen needle, diabetic [Pen Needle] 30 gauge x 5/16 needle See Rx Instructions .Route Qty: 1200 0RF Rx Instructions: As directed Continued alendronate 70 mg tablet 70 mg PO QWEEK levothyroxine 50 mcg tablet 50 mcg PO DAILY simvastatin 20 mg tablet 20 mg PO QPM fluticasone propionate 50 mcg/actuation spray,suspension 2 spray INTRANASAL DAILY lisinopril 2.5 mg tablet 2.5 mg PO DAILY mometasone 0.1 % cream 1 applic topical DAILY metoprolol tartrate 25 mg tablet 12.5 mg PO BID Rybelsus 3 mg tablet 3 mg PO DAILY Discontinued metformin 500 mg tablet 500 mg PO BID loratadine [Allerclear] 10 mg tablet 10 mg PO DAILY Referrals / Follow Up: Chad Curtis MD [Primary Care Provider] - Within 1 Week Sav Desouza MD [Med Staff - Courtesy Staff] - Within 2 Weeks (Call for an appointment to be seen and please take your recording of your blood glucose levels) Disposition Disposition (needs filled in before D/C Order can be placed): Home, Self Care Charges/Coding Visit Charges Inpatient E&M: 58444 Disch Hosp >30min
[2024-02-10 13:43] LABS: Anion Gap 6 (5-15); BUN 32 mg/dL (7-18); BUN/Creat Ratio 24.2 RATIO (10-20); Calcium,Total 9.4 mg/dL (8.5-10.1); Chloride 106 mmol/L (98-107); Creatinine, Serum 1.32 mg/dL (0.55-1.02); EST Glomerular Filtration Rate 41 mL/min (>60); Est Glom Filt Rate - Afr Amer 49 mL/min (>60); Estimated Creatinine Clearance 20.14 ml/min; Glucose 238 mg/dL (74-106); Potassium 4.1 mmol/L (3.5-5.1); Sodium Level 135 mmol/L (136-145)
--- NOTE | 2024-02-10 14:30 | CASEMGMT ---
RN CM in to discuss needs at discharge with patient and family, daughter at bedside. RN CM discussed youth walker at discharge as recommended by therapy. Patient agreeable and would like [employer] for DME. RN CM discuss HHC at discharge, patient agreeable. A list of HHC providers including quality and resource use data and consistent with the patient?s preferred geographical region, medical needs, and insurance network were provided from the [employer] Guide. Patient and family to review list.
--- NOTE | 2024-02-10 15:10 | CASEMGMT ---
JOSEF GARCIA received script for walker and sent to [facility], walker provided from [employer]. JOSEF GARCIA in to deliver walker. Patient and daughter agreeable to [facility]. JOSEF GARCIA made referral to [facility], awaiting acceptance.
--- NOTE | 2024-02-10 15:14 | PHA.DC.MC.R ---
Pharmacy [facility] has performed discharge medication reconciliation and counseling for this patient. The patient's discharge medication list was reviewed for discrepancies and discrepancies were resolved. The patient was counseled on the following discharge medications and changes in medications for homegoing were reviewed. The Reason for Use, instructions for use, and potential side effects were reviewed for all new medications. The patient's questions regarding all of their medications were answered. 1. Insulin glargine 30 units SC daily 2. Insulin lispro 10 units TID with meals The patient's daughter was able to verbally demonstrate an understanding of their discharge medications. Medications at Discharge Home Medications alendronate 70 mg tablet 70 mg PO QWEEK bone health 02/07/24 fluticasone propionate 50 mcg/actuation nasal spray,suspension 2 spray intranasal DAILY allergies 02/07/24 levothyroxine 50 mcg tablet 50 mcg PO DAILY thyroid 02/07/24 lisinopril 2.5 mg tablet 2.5 mg PO DAILY blood pressure 02/07/24 metoprolol tartrate 25 mg tablet 12.5 mg PO BID blood pressure 02/07/24 mometasone 0.1 % topical cream 1 applic topical DAILY rash 02/07/24 semaglutide 3 mg tablet (Rybelsus) 3 mg PO DAILY diabetes 02/07/24 simvastatin 20 mg tablet 20 mg PO QPM cholesterol 02/07/24 insulin glargine-yfgn 100 unit/mL (3 mL) subcutaneous pen 30 unit (0.3 mL) subcut DAILY #15 mL 02/10/24 insulin lispro 100 unit/mL subcutaneous pen (Humalog KwikPen (U-100) Insulin) 10 unit (0.1 mL) subcut TIDAC #15 mL 02/10/24 pen needle, diabetic 30 gauge x 5/16 (Pen Needle) #1,200 ea 02/10/24
--- NOTE | 2024-02-10 16:15 | CASEMGMT ---
Patient accepted by [facility] with planned start of care for tomorrow. JOSEF GARCIA called pharmacy to confirm copays for insulin total for both insulins and needle is $152, which is affordable. JOSEF GARCIA update family regarding [facility] acceptance and start of care for tomorrow. Patient and family had no further questions or concerns.
[2024-02-10 16:45] LABS: Bedside Glucose 287 mg/dL (74-106)
--- NOTE | 2024-02-10 16:53 | CT_ITS ---
STUDY: CT ABDOMEN AND PELVIS WITHOUT CONTRAST REASON FOR EXAM: Female, 83 years old. Hematuria RADIATION DOSAGE (If Supplied By Facility): CTDIvol = ( 5.16 ) mGy, DLP = ( 256.24 ) mGycm TECHNIQUE: Transaxial images were obtained from the dome of the diaphragm to the symphysis pubis without oral contrast, and without intravenous contrast. Sagittal and coronal images were reconstructed. Individualized dose optimization techniques were used for this CT. COMPARISON: None. FINDINGS: The visualized lung bases are unremarkable. There are coronary artery calcifications. Normal liver. Normal gallbladder and extrahepatic biliary system. Normal spleen. Normal pancreas. Normal bilateral adrenal glands. There is mild hydronephrosis of the right kidney. There is mild hydronephrosis of the left kidney. Normal visualized stomach. Normal small intestine. There are a few colonic diverticula consistent with diverticulosis. There is moderate stool. There is non-visualization of the appendix. There is atherosclerotic calcification of the abdominal aorta, without a demonstrated aneurysm. Normal inferior vena cava. Normal retroperitoneum. There is Pelayo catheter in the urinary bladder. There is atrophy of the uterus. There is no free fluid in the abdomen or pelvis. Normal abdominal wall. There is lumbar dextro scoliosis with degenerative change of the spine. CT/Abdomen/Pelvis without Cont IMPRESSION: Mild bilateral hydronephrosis. Pelayo catheter in the bladder. No stones are seen. Colonic diverticulosis. No obstruction. Electronically Signed: Robert Vences MD at 18:41 EDT ,
--- NOTE | 2024-02-10 16:54 | PCM.HOSP.N ---
Hospitalist Note Patient had been doing well and was discharged however she developed gross hematuria. Pelayo was placed and urine was red with clots. Stat UA sent. CT of the abdomen pelvis without contrast ordered. Her initial UA only showed 25 of RBCs. Urology was consulted and I discussed the case with Dr. Rowell.
[2024-02-10 17:17] LABS: Bacteria 0 SEEN /hpf (None Seen); Color, Urine Amber (Yellow); Glucose, Dipstick 1000 mg/dl (Normal); Ketone-Dipstick 5 mg/dl (Negative); Leukocyte Esterase-Dipstick 500 /ul (Negative); Mucous, Urine 0 SEEN /hpf (<or=2+); Nitrite-Dipstick Positive (Negative); Occult Blood-Urine 250 /ul (Negative); Protein-Dipstick 100 mg/dl (Negative); Urine Bilirubin Dipstick Negative (Negative); Urine Clarity Cloudy (Clear); Urine Urobilinogen Normal (Normal); Urine pH 6.5 (5.0 - 8.0)
[2024-02-10 17:26] LABS: Red Blood Cells-Urine > 100 SEEN /hpf (0-5); Squamous Epithelial Cells - UA 0-5 SEEN /hpf (5-10); White Blood Cells 50-100 SEEN /hpf (0-5)
[2024-02-10] MEDS: Atorvastatin Calcium 10 MG Tablet PO (20:59)
--- NOTE | 2024-02-10 21:08 | PCM.CONS.GEN ---
Assessment & Plan Assessment/Plan (1) Acute UTI: (2) Gross hematuria: (3) Hydronephrosis: PLAN: Plan Change Pelayo catheter to 24 Hungarian and add manual irrigation Continue antibiotic coverage for urinary tract infection Will need cystoscopy and at minimum repeat evaluation of her hydronephrosis If the urine clears with larger Pelayo catheter and antibiotics, this can be done as an outpatient If she remains bloody, will need to consider OR HPI Consult Data Date of Consult: 02/10/24 HPI Narrative Reason for Consultation: Gross hematuria HPI Narrative: KELSEY PURI, is a 83 F who was admitted with urinary tract infection and hyperglycemia. She was found to have Enterobacter growing in her urine and has been given a dose of fosfomycin orally here. Prior to discharge home, she developed gross hematuria. The patient is very tired this evening and is apparently very hard of hearing. It is difficult to get any conversation from her despite her being awake. Nursing reports that she has had family with her visiting all day and that she is still hard of hearing that they communicate by writing. She has had multiple urinary tract infections in the past. She reports that she is also had hematuria with them. [facility] Medical History (Updated 02/10/24 @ 21:[address] Nellie Rowell MD) Diabetes mellitus, type 2 Gross hematuria HTN (hypertension) Hydronephrosis Hyperlipidemia Hypothyroidism Osteoporosis Seasonal allergies Home Medications alendronate 70 mg tablet 70 mg PO QWEEK bone health 02/07/24 [History Last Taken 02/06/24] fluticasone propionate 50 mcg/actuation nasal spray,suspension 2 spray intranasal DAILY allergies 02/07/24 [History Last Taken 02/06/24] levothyroxine 50 mcg tablet 50 mcg PO DAILY thyroid 02/07/24 [History Last Taken 02/06/24] lisinopril 2.5 mg tablet 2.5 mg PO DAILY blood pressure 02/07/24 [History Last Taken 02/06/24] metoprolol tartrate 25 mg tablet 12.5 mg PO BID blood pressure 02/07/24 [History Last Taken 02/06/24] mometasone 0.1 % topical cream 1 applic topical DAILY rash 02/07/24 [History Last Taken 02/06/24] semaglutide 3 mg tablet (Rybelsus) 3 mg PO DAILY diabetes 02/07/24 [History Last Taken 02/06/24] simvastatin 20 mg tablet 20 mg PO QPM cholesterol 02/07/24 [History Last Taken 02/06/24] insulin glargine-yfgn 100 unit/mL (3 mL) subcutaneous pen 30 unit (0.3 mL) subcut DAILY #15 mL 02/10/24 [Rx Last Taken Unknown] insulin lispro 100 unit/mL subcutaneous pen (Humalog KwikPen (U-100) Insulin) 10 unit (0.1 mL) subcut TIDAC #15 mL 02/10/24 [Rx Last Taken Unknown] pen needle, diabetic 30 gauge x 5/16 (Pen Needle) #1,200 ea 02/10/24 [Rx Last Taken Unknown] Allergy/AdvReac Type Severity Reaction Status Date / Time ciprofloxacin Allergy Unknown Other Verified 02/07/24 14:38 amoxicillin Allergy Rash Verified 02/07/24 14:38 sulfamethoxazole Allergy Rash Verified 02/07/24 14:38 [From Bactrim] trimethoprim [From Bactrim] Allergy Rash Verified 02/07/24 14:38 diphenhydramine AdvReac Itching Verified 02/07/24 14:38 [From Benadryl] Social History Smoking Status: Never smoker ROS Review of Systems ROS Unobtainable: other Details: very hard of hearing, not talking much, not wanting to read questions She does report that she is feeling sick to her stomach tonight Information coming from previous provider notes Constitutional Constitutional: Reports poor appetite and weakness Eyes Eyes: Reports systems reviewed and no addt'l complaints, except as documented ENT HEENT: Reports systems reviewed and no addt'l complaints, except as documented Cardiovascular Cardiovascular: Reports systems reviewed and no addt'l complaints, except as documented Respiratory/Chest Respiratory/Chest: Reports systems reviewed and no addt'l complaints, except as documented Gastrointestinal Gastrointestinal: Reports abdominal pain and nausea Genitourinary Genitourinary: Reports hematuria Musculoskeletal Musculoskeletal: Reports systems reviewed and no addt'l complaints, except as documented Integumentary Integumentary: Reports systems reviewed and no addt'l complaints, except as documented Neurologic Neurologic: Reports abnormal hearing Psychiatric Psychiatric: Reports systems reviewed and no addt'l complaints, except as documented Physical Exam Const alert, oriented x3 and no apparent distress General Appearance: frail Exam Limitations: behavioral limitations Nutritional Appearance: underweight HEENT normocephalic, head/scalp atraumatic and external nose normal; Negative for hearing grossly normal bilaterally Eyes General Eye: normal appearance of both eyes Neck supple General: trachea midline Lymph Lymphatic: no lymphedema noted Chest inspection of chest normal Resp normal respiratory effort, normal air movement, no retractions and no use of accessory muscles Cardio regular rate GI soft to palpation, non-tender and non-distended Narrative: 16 Hungarian Pelayo catheter draining blood-tinged yellow urine with blood clot and debris Bladder / Kidney Exam: catheter in place Skin no rashes or lesions noted, skin turgor normal, no jaundice, no petechiae and no mottling Neuro CN's II-XII intact bilaterally and moves all extremities Psych mental status grossly normal Medical Records Data Medical Nutrition Assessment Dietitian: Malnutrition Criteria Met Start: 02/08/24 11:15 Freq: Status: Active Protocol: Document 02/08/24 11:15 EDUARDO (Rec: 02/08/24 11:15 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 Problem Recommendation Dietitian Recommendations/Changes Will change diet to 1600 mira No Added Salt to better meet pt est nutritional needs Will order 4 oz glucerna shake 4x/day w/ medpass for increased nutrition if consumed Lab / Micro Data 02/10/24 06:15 02/10/24 06:15 Labs: Laboratory Results - last 24 hr 02/09/24 16:27: POC Glucose 251 H 02/09/24 21:27: POC Glucose 360 H 02/10/24 06:15: WBC 14.4 H, RBC 4.36, Hgb 11.5 L, Hct 35.5 L, MCV 81.4, MCH 26.4 L, MCHC 32.4, RDW Std Deviation 41.4, RDW Coeff of Zander 13.9, Plt Count 479 H, MPV 8.6, Immature Gran % (Auto) 2.800 H, Neut % (Auto) 75.1 H, Lymph % (Auto) 11.9 L, [place] % (Auto) 7.9, Eos % (Auto) 1.7, Baso % (Auto) 0.6, Absolute Neuts (auto) 10.8 H, Absolute Lymphs (auto) 1.72, Nucleated RBC % 0, Sodium 135 L, Potassium 4.1, Chloride 106, Carbon Dioxide 23.0, Anion Gap 6, BUN 32 H, Creatinine 1.32 H, Estim Creat Clear Calc 20.14, Est GFR (MDRD) Af Amer 49 L, Est GFR (MDRD) Non-Af 41 L, BUN/Creatinine Ratio 24.2 H, Glucose 238 H, Calcium 9.4 02/10/24 07:57: POC Glucose 244 H 02/10/24 11:24: POC Glucose 295 H 02/10/24 16:16: POC Glucose 287 H 02/10/24 16:51: Urine Color Lamar, Urine Clarity Cloudy, Urine pH 6.5, Ur Specific [place] 1.010, Urine Protein 100 H, Urine Glucose (UA) 1000 H, Urine Ketones 5 H, Urine Occult Blood 250 H, Urine Nitrite Positive H, Urine Bilirubin Negative, Urine Urobilinogen Normal, Ur Leukocyte Esterase 500 H, Urine RBC > 100 SEEN, Urine WBC 50-100 SEEN, Ur Squamous Epith Cells 0-5 SEEN, Urine Bacteria 0 SEEN, Urine Mucus 0 SEEN Micro: Microbiology 02/07/24 15:45 Blood Culture (Wb) - Anticubital Left Blood Culture - Preliminary No growth in 48 hours. 02/07/24 15:40 Urine, Catheterized Urine Culture - Preliminary Enterobacter cloacae complex Gram negative thony Imaging Radiology Impression Abdomen/Pelvis CT 02/10/24 16:53 IMPRESSION: Mild bilateral hydronephrosis. Pelayo catheter in the bladder. No stones are seen. Colonic diverticulosis. No obstruction. Electronically Signed: Robert Vences MD at 18:41 EDT , There is bilateral mild hydronephrosis with dilation of the ureter especially on the left. Pelayo catheter is within the urinary bladder and it does not appear that there is a significant amount of clot.
[2024-02-10 23:08] LABS: Bedside Glucose 176 mg/dL (74-106)
[2024-02-11] VITALS (9 sets, daily range): BP systolic 98–152; BP diastolic 54–70; PULSE 82–90; RESP 12–16; TEMP 36.3–36.9; O2SAT 97–100
[2024-02-11] MEDS: Gentamicin IV 240 MG in Dextrose 5%-Water (50mL Bag) 50 ML 100 MG IVPB (00:05)
[2024-02-11] MEDS: 0.9% Saline Lock 10 ML Syringe IV (00:06)
[2024-02-11] MEDS: Levothyroxine 50 MCG Tablet PO (05:51)
[2024-02-11 07:17] LABS: Absolute Lymphocyte Count 2.11 X10^3/uL (0.83-4.51); Absolute Neutrophil Count 13.5 X10^3/uL (2.0-7.7); Basophil# 0.07 X10^3/uL; Basophil% 0.4 % (0-1); Eosinophil# 0.27 X10^3/uL; Eosinophils% 1.5 % (0-5); Hematocrit 30.5 % (37-47); Lymphocyte # 2.11 X10^3/ul (0.83-4.51); Lymphocyte % 11.9 % (19-41); Mean Corp Hgb Conc 32.8 g/dL (32-36); Mean Corpuscular Volume 82.2 fL (81-99); Mean Platelet Vol. 8.9 fl (6.2-12.0); Monocyte# 1.14 X10^3/uL; Monocyte% 6.4 % (0-10); NRBC Flagged by Analyzer 0 % (0-5); Neutrophil # 13.54 X10^3/uL (2.7-7.7); Neutrophil % 76.5 % (47-70); Platelet Count 458 K/mm3 (150-450); RBC Distribution Width SD 41.5 fl (35.1-43.9); Red Blood Count 3.71 M/mm3 (4.2-5.4); White Blood Count 17.7 K/mm3 (4.4-11.0)
[2024-02-11 08:00] LABS: Anion Gap 7 (5-15); BUN 29 mg/dL (7-18); BUN/Creat Ratio 22.1 RATIO (10-20); Chloride 105 mmol/L (98-107); Creatinine, Serum 1.31 mg/dL (0.55-1.02); EST Glomerular Filtration Rate 41 mL/min (>60); Est Glom Filt Rate - Afr Amer 50 mL/min (>60); Estimated Creatinine Clearance 20.29 ml/min; Glucose 216 mg/dL (74-106); Potassium 4.2 mmol/L (3.5-5.1); Sodium Level 132 mmol/L (136-145)
[2024-02-11] MEDS: Glucerna Shake 120 ML LIQUID PO ×2 (08:31→21:26)
[2024-02-11] MEDS: Insulin Lispro 100 UNIT/ML INSULN.PEN 10 UNIT SC ×3 (08:31→16:27)
[2024-02-11] MEDS: Insulin Lispro 100 UNIT/ML INSULN.PEN SC ×4 (08:31→21:27)
[2024-02-11] MEDS: Fluticasone 0.05% 1 SPRAY NASAL.SRY 2 SPRAY NASAL (08:32)
[2024-02-11] MEDS: Insulin Glargine-YFGN 100 UNIT/ML Pen 30 UNIT SC (08:32)
[2024-02-11] MEDS: SEMAGLUTIDE 3 MG PO (08:33)
[2024-02-11] MEDS: Metoprolol Tartrate 25 MG Tablet 12.5 MG PO ×2 (08:37→21:26)
[2024-02-11 09:01] LABS: Bedside Glucose 199 mg/dL (74-106)
--- NOTE | 2024-02-11 11:25 | PN.URO_ITS ---
Subjective Subjective The patient is awake in bed, still very hard of hearing obviously and not speaking too much. She does seem to understand what is going on. Objective Data Objective Data Vital Signs: Vital Signs Temp Pulse Resp BP Pulse Ox O2 Del Method 98.4 F 90 16 110/67 100 Room Air 02/11/24 08:30 02/11/24 08:37 02/11/24 08:30 02/11/24 08:37 02/11/24 08:55 02/11/24 08:55 Oxygen Delivery Method Room Air Weight: 39.5 kg Body Mass Index (BMI) 16.9 Intake & Output: Intake and Output for Last 24 Hours 02/09/24 02/10/24 02/11/24 23:59 23:59 23:59 Intake Total 2257.5 / 2257.5 1000 / 1060 166 / 166 Output Total 1325 / 1325 1150 / 1240 490 / 490 Balance 932.5 / 932.5 -150 / -180 -324 / -324 Medical Nutrition Assessment Dietitian: Malnutrition Criteria Met Start: 02/08/24 11:15 Freq: Status: Active Protocol: Document 02/08/24 11:15 SLA (Rec: 02/08/24 11:15 SLA [id number]) Nutrition Malnutrition Evidence of Malnutrition Exists Yes Malnutrition (severe): Acute Illness/Injury Evidenced By Suboptimal Energy Intake ( Severe),Weight Loss (Severe) Clinical Problem Acute Disease or Injury Related Malnutrition Etiology Pt with increased confusion resulting in decreased energy intake Signs/Symptoms as evidenced by 6.6% unintended wt loss x < 1 month and 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; 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 Problem Recommendation Dietitian Recommendations/Changes Will change diet to 1600 mira No Added Salt to better meet pt est nutritional needs Will order 4 oz glucerna shake 4x/day w/ medpass for increased nutrition if consumed Lab / Micro Data 02/11/24 06:25 02/11/24 06:25 Labs: Laboratory Results - last 24 hr 02/10/24 06:15: Sodium 135 L, Potassium 4.1, Chloride 106, Carbon Dioxide 23.0, Anion Gap 6, BUN 32 H, Creatinine 1.32 H, Estim Creat Clear Calc 20.14, Est GFR (MDRD) Af Amer 49 L, Est GFR (MDRD) Non-Af 41 L, BUN/Creatinine Ratio 24.2 H, Glucose 238 H, Calcium 9.4 02/10/24 11:24: POC Glucose 295 H 02/10/24 16:16: POC Glucose 287 H 02/10/24 16:50: Urine Color Lamar, Urine Clarity Cloudy, Urine pH 6.5, Ur Specific [place] 1.010, Urine Protein 100 H, Urine Glucose (UA) 1000 H, Urine Ketones 5 H, Urine Occult Blood 250 H, Urine Nitrite Positive H, Urine Bilirubin Negative, Urine Urobilinogen Normal, Ur Leukocyte Esterase 500 H, Urine RBC > 100 SEEN, Urine WBC 50-100 SEEN, Ur Squamous Epith Cells 0-5 SEEN, Urine Bacteria 0 SEEN, Urine Mucus 0 SEEN 02/10/24 20:56: POC Glucose 176 H 02/11/24 06:25: WBC 17.7 H, RBC 3.71 L, Hgb 10.0 L, Hct 30.5 L, MCV 82.2, MCH 27.0, MCHC 32.8, RDW Std Deviation 41.5, RDW Coeff of Zander 14.0, Plt Count 458 H, MPV 8.9, Immature Gran % (Auto) 3.300 H, Neut % (Auto) 76.5 H, Lymph % (Auto) 11.9 L, [place] % (Auto) 6.4, Eos % (Auto) 1.5, Baso % (Auto) 0.4, Absolute Neuts (auto) 13.5 H, Absolute Lymphs (auto) 2.11, Nucleated RBC % 0, Sodium 132 L, Potassium 4.2, Chloride 105, Carbon Dioxide 20.0 L, Anion Gap 7, BUN 29 H, Creatinine 1.31 H, Estim Creat Clear Calc 20.29, Est GFR (MDRD) Af Amer 50 L, Est GFR (MDRD) Non-Af 41 L, BUN/Creatinine Ratio 22.1 H, Glucose 216 H, Calcium 9.0 02/11/24 08:30: POC Glucose 199 H Micro: Microbiology 02/07/24 15:40 Urine, Catheterized Urine Culture - Final Enterobacter cloacae complex 02/07/24 15:45 Blood Culture (Wb) - Anticubital Left Blood Culture - Preliminary No growth in 48 hours. 02/07/24 15:15 Blood Culture (Wb) - Anticubital Right Blood Culture - Preliminary No growth in 48 hours. Radiography Diagnostic Testing: Radiology Impression Abdomen/Pelvis CT 02/10/24 16:53 IMPRESSION: Mild bilateral hydronephrosis. Pelayo catheter in the bladder. No stones are seen. Colonic diverticulosis. No obstruction. Electronically Signed: Robert Vences MD at 18:41 EDT Reading Location ID and State: [address] [place] [address] , Service support , Physical Exam Narrative Pelayo catheter draining pink urine. It was manually irrigated with no clot return. I do not feel there is enough hematuria for the hemoglobin to drop 1.5 g overnight. Const alert, oriented x3 and no apparent distress HEENT normocephalic, head/scalp atraumatic, external ears normal and external nose normal Eyes General Eye: normal appearance of both eyes Neck supple General: trachea midline Lymph Lymphatic: no lymphedema noted Chest inspection of chest normal Resp normal respiratory effort and normal air movement GI soft to palpation, non-tender and non-distended Narrative: Pelayo irrigated, no clot, pink-tinged urine Assessment & Plan Assessment/Plan (1) Gross hematuria: (2) Hydronephrosis: QUALIFIERS: Hydronephrosis type: unspecified Qualified Code(s): N13.30 - Unspecified hydronephrosis (3) Acute UTI: (4) Elevated serum creatinine: PLAN: Continue Pelayo to straight drain Repeat blood work Follow urine and will reevaluate later today. If the urine is clear we will remove the Pelayo.
[2024-02-11 11:52] LABS: Bedside Glucose 350 mg/dL (74-106)
--- NOTE | 2024-02-11 14:56 | PN.HOSP_ITS ---
Reason for Visit Reason for Visit: Confusion Subjective Subjective No significant issues overnight. Still with blood-tinged urine in her catheter. Objective Data Objective Data Vital Signs: Vital Signs Temp Pulse Resp BP Pulse Ox O2 Del Method 97.7 F L 86 16 98/58 L 100 Room Air 02/11/24 14:30 02/11/24 14:30 02/11/24 14:30 02/11/24 14:30 02/11/24 14:35 02/11/24 14:35 Oxygen Delivery Method Room Air Weight: 39.5 kg Body Mass Index (BMI) 16.9 Intake & Output: Intake and Output for Last 24 Hours 02/09/24 02/10/24 02/11/24 23:59 23:59 23:59 Intake Total 2257.5 / 2257.5 1000 / 1060 406 / 406 Output Total 1325 / 1325 1150 / 1240 690 / 690 Balance 932.5 / 932.5 -150 / -180 -284 / -284 Medical Nutrition Assessment Dietitian: Malnutrition Criteria Met Start: 02/08/24 11:15 Freq: Status: Active Protocol: Document 02/08/24 11:15 EDUARDO (Rec: 02/08/24 11:15 SLA [id number]) Nutrition Malnutrition Evidence of Malnutrition Exists Yes Malnutrition (severe): Acute Illness/Injury Evidenced By Suboptimal Energy Intake ( Severe),Weight Loss (Severe) Clinical Problem Acute Disease or Injury Related Malnutrition Etiology Pt with increased confusion resulting in decreased energy intake Signs/Symptoms as evidenced by 6.6% unintended wt loss x < 1 month and 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; 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 Problem Recommendation Dietitian Recommendations/Changes Will change diet to 1600 mira No Added Salt to better meet pt est nutritional needs Will order 4 oz glucerna shake 4x/day w/ medpass for increased nutrition if consumed Lab / Micro Data 02/11/24 06:25 02/11/24 06:25 Labs: Laboratory Results - last 24 hr 02/10/24 16:16: POC Glucose 287 H 02/10/24 16:50: Urine Color Lamar, Urine Clarity Cloudy, Urine pH 6.5, Ur Specific [place] 1.010, Urine Protein 100 H, Urine Glucose (UA) 1000 H, Urine Ketones 5 H, Urine Occult Blood 250 H, Urine Nitrite Positive H, Urine Bilirubin Negative, Urine Urobilinogen Normal, Ur Leukocyte Esterase 500 H, Urine RBC > 100 SEEN, Urine WBC 50-100 SEEN, Ur Squamous Epith Cells 0-5 SEEN, Urine Bacteria 0 SEEN, Urine Mucus 0 SEEN 02/10/24 20:56: POC Glucose 176 H 02/11/24 06:25: WBC 17.7 H, RBC 3.71 L, Hgb 10.0 L, Hct 30.5 L, MCV 82.2, MCH 27.0, MCHC 32.8, RDW Std Deviation 41.5, RDW Coeff of Zander 14.0, Plt Count 458 H, MPV 8.9, Immature Gran % (Auto) 3.300 H, Neut % (Auto) 76.5 H, Lymph % (Auto) 11.9 L, [place] % (Auto) 6.4, Eos % (Auto) 1.5, Baso % (Auto) 0.4, Absolute Neuts (auto) 13.5 H, Absolute Lymphs (auto) 2.11, Nucleated RBC % 0, Sodium 132 L, Potassium 4.2, Chloride 105, Carbon Dioxide 20.0 L, Anion Gap 7, BUN 29 H, Creatinine 1.31 H, Estim Creat Clear Calc 20.29, Est GFR (MDRD) Af Amer 50 L, Est GFR (MDRD) Non-Af 41 L, BUN/Creatinine Ratio 22.1 H, Glucose 216 H, Calcium 9.0 02/11/24 08:30: POC Glucose 199 H 02/11/24 11:29: POC Glucose 350 H Micro: Microbiology 02/07/24 15:40 Urine, Catheterized Urine Culture - Final Enterobacter cloacae complex 02/07/24 15:45 Blood Culture (Wb) - Anticubital Left Blood Culture - Preliminary No growth in 48 hours. 02/07/24 15:15 Blood Culture (Wb) - Anticubital Right Blood Culture - Prelim inary No growth in 48 hours. Radiography Diagnostic Testing: Radiology Impression Abdomen/Pelvis CT 02/10/24 16:53 IMPRESSION: Mild bilateral hydronephrosis. Pelayo catheter in the bladder. No stones are seen. Colonic diverticulosis. No obstruction. Electronically Signed: Robert Vences MD at 18:41 EDT , Physical Exam Const alert, oriented x3, no apparent distress and no limitations; Negative for average body habitus, healthy appearing or well nourished Constitutional Narrative: Thin, elderly, hard of hearing, white female, sitting up in bed, daughter at bedside, appears comfortable and nontoxic HEENT normocephalic, head/scalp atraumatic, moist oral mucous membranes and oropharynx normal; Negative for hearing grossly normal bilaterally HEENT Narrative: Marked hearing loss, edentulous, Mallampati 1, no thrush Resp normal respiratory effort, no retractions, no use of accessory muscles and clear to auscultation bilaterally Auscultation: Negative for rales, rhonchi or wheezes Cardio regular rate, regular rhythm, S1 normal heart sound, S2 normal heart sound, no murmurs, no rub, no gallops and no clicks GI normal to inspection, nondistended, normoactive bowel sounds, soft to palpation and non-tender Extremity no clubbing, cyanosis or edema Extremity Narrative: Decreased lean muscle mass, pedal pulses and radial pulses are 2+ Neuro oriented x3, moves all extremities and no focal motor deficits Neuro Narrative: drowsy Speech: speech normal Psych affect normal Psych Narrative: Eye contact is good and patient interacts appropriately however is markedly hard of hearing Assessment & Plan Assessment/Plan (1) Elevated serum creatinine: (2) Hyperglycemia: (3) Hyponatremia: (4) Acute UTI: (5) Toxic metabolic encephalopathy: (6) Severe malnutrition: (7) Gross hematuria: (8) Hydronephrosis: QUALIFIERS: Hydronephrosis type: unspecified Qualified Code(s): N13.30 - Unspecified hydronephrosis PLAN: Plan Acute Enterobacter colliculi urinary tract infection -Patient was given gentamicin yesterday -Also had fosfomycin with plans for dosing on and Friday Gross hematuria -Pelayo placed last evening -Patient with persistent pinkness to her urine -Urology is following and plan is for cystoscopy tomorrow Mild hydronephrosis bilaterally -Urology following -Cystoscopy tomorrow Elevated serum creatinine -Unable to declare this as ANJANA as baseline is unclear -Serum creatinine on admission was 2.13 -Down to 1.31 today from 1.32 yesterday and seems to be stabilizing Toxic/metabolic encephalopathy -Resolved DM-2 uncontrolled with hyperglycemia -Hemoglobin A1c was 13.6 on admission -Increase Lantus from 20 to 30 units-fasting blood sugar today 216 -Continue Humalog 3 times daily but increase from 6 to 10 units -Continue SSI -Accu-Cheks as ordered -Continue carb controlled diet -Home oral agents are on hold Severe malnutrition -Dietitian is following-appreciate input -Continue supplements as added -Liberalize diet as able Hypothyroidism -Continue home levothyroxine Hypertension -Lisinopril on hold due to elevated creatinine on admission and will likely discharge her off of this or decrease the dose -Continue home metoprolol -Overall blood pressures appear to be well-controlled Seasonal allergies -Continue home mometasone -Continue home fluticasone nasal spray Hyperlipidemia -Continue home simvastatin Osteoporosis -Restart home alendronate at discharge DVT prophylaxis -Hold enoxaparin due to hematuria CODE STATUS -full code Charges/Coding Visit Charges Inpatient E&M: 86940 Subs Hosp L2
[2024-02-11 16:55] LABS: Bedside Glucose 237 mg/dL (74-106)
[2024-02-11] MEDS: Atorvastatin Calcium 10 MG Tablet PO (21:26)
[2024-02-11 21:50] LABS: Bedside Glucose 259 mg/dL (74-106)
[2024-02-12 03:41] VITALS: BP 101/55; PULSE 74; RESP 16; TEMP 36.3; O2SAT 97
[2024-02-12 07:22] LABS: Absolute Lymphocyte Count 2.94 X10^3/uL (0.83-4.51); Absolute Neutrophil Count 10.3 X10^3/uL (2.0-7.7); Basophil# 0.11 X10^3/uL; Basophil% 0.7 % (0-1); Eosinophils% 2.5 % (0-5); Hematocrit 29.1 % (37-47); Hemoglobin 9.2 g/dL (12.0-15.0); Lymphocyte # 2.94 X10^3/ul (0.83-4.51); Lymphocyte % 18.6 % (19-41); Mean Corp Hgb Conc 31.6 g/dL (32-36); Mean Corpuscular Hgb 25.8 pg (27.0-32.0); Mean Corpuscular Volume 81.7 fL (81-99); Mean Platelet Vol. 8.9 fl (6.2-12.0); Monocyte# 1.31 X10^3/uL; Monocyte% 8.3 % (0-10); NRBC Flagged by Analyzer 0 % (0-5); Neutrophil # 10.34 X10^3/uL (2.7-7.7); Neutrophil % 65.5 % (47-70); Platelet Count 473 K/mm3 (150-450); RBC Distribution Width CV 14.3 % (11.6-14.6); RBC Distribution Width SD 42.8 fl (35.1-43.9); Red Blood Count 3.56 M/mm3 (4.2-5.4); White Blood Count 15.8 K/mm3 (4.4-11.0)
[2024-02-12 08:10] LABS: Bedside Glucose 159 mg/dL (74-106)
[2024-02-12 08:21] VITALS: BP 103/49; PULSE 77; RESP 20; TEMP 36.6; O2SAT 97
[2024-02-12 08:21] LABS: Anion Gap 6 (5-15); BUN 30 mg/dL (7-18); BUN/Creat Ratio 22.6 RATIO (10-20); Calcium,Total 8.9 mg/dL (8.5-10.1); Chloride 106 mmol/L (98-107); Creatinine, Serum 1.33 mg/dL (0.55-1.02); EST Glomerular Filtration Rate 41 mL/min (>60); Est Glom Filt Rate - Afr Amer 49 mL/min (>60); Estimated Creatinine Clearance 19.99 ml/min; Glucose 165 mg/dL (74-106); Magnesium 1.5 mg/dL (1.6-2.6); Phosphorus 3.5 mg/dL (2.5-4.9); Potassium 4.2 mmol/L (3.5-5.1); Sodium Level 135 mmol/L (136-145)
[2024-02-12] MEDS: Insulin Lispro 100 UNIT/ML INSULN.PEN 10 UNIT SC ×2 (08:25→11:19)
[2024-02-12] MEDS: Insulin Glargine-YFGN 100 UNIT/ML Pen 30 UNIT SC (08:25)
[2024-02-12 08:26] VITALS: BP 103/49; PULSE 77
[2024-02-12] MEDS: Loratadine 10 MG Tablet PO (08:26)
[2024-02-12] MEDS: Fluticasone 0.05% 1 SPRAY NASAL.SRY 2 SPRAY NASAL (08:26)
[2024-02-12] MEDS: Metoprolol Tartrate 25 MG Tablet 12.5 MG PO (08:26)
[2024-02-12] MEDS: Insulin Lispro 100 UNIT/ML INSULN.PEN SC ×2 (08:26→11:19)
[2024-02-12] MEDS: SEMAGLUTIDE 3 MG PO (08:26)
[2024-02-12] MEDS: FOSFOMYCIN TROMETHAMINE 3 GM PACKET PO (08:27)
[2024-02-12] MEDS: Glucerna Shake 120 ML LIQUID PO (08:27)
--- NOTE | 2024-02-12 09:30 | PN.URO_ITS ---
Subjective Subjective She is resting comfortably in bed. Objective Data Objective Data Vital Signs: Vital Signs Temp Pulse Resp BP Pulse Ox O2 Del Method 97.9 F 77 20 H 103/49 L 97 Room Air 02/12/24 08:21 02/12/24 08:26 02/12/24 08:21 02/12/24 08:26 02/12/24 08:21 02/12/24 08:21 Oxygen Delivery Method Room Air Weight: 39.5 kg Body Mass Index (BMI) 16.9 Intake & Output: Intake and Output for Last 24 Hours 02/10/24 02/11/24 02/12/24 23:59 23:59 23:59 Intake Total 1000 / 1060 896 / 896 Output Total 1150 / 1240 1390 / 1390 600 / 600 Balance -150 / -180 -494 / -494 -600 / -600 Medical Nutrition Assessment Dietitian: Malnutrition Criteria Met Start: 02/08/24 11:15 Freq: Status: Active Protocol: Document 02/08/24 11:15 EDUARDO (Rec: 02/08/24 11:15 [facility] [id number]) Nutrition Malnutrition Evidence of Malnutrition Exists Yes Malnutrition (severe): Acute Illness/Injury Evidenced By Suboptimal Energy Intake ( Severe),Weight Loss (Severe) Clinical Problem Acute Disease or Injury Related Malnutrition Etiology Pt with increased confusion resulting in decreased energy intake Signs/Symptoms as evidenced by 6.6% unintended wt loss x < 1 month and 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 02/12/24 06:15 02/12/24 06:15 Labs: Laboratory Results - last 24 hr 02/11/24 11:29: POC Glucose 350 H 02/11/24 16:21: POC Glucose 237 H 02/11/24 21:24: POC Glucose 259 H 02/12/24 06:15: WBC 15.8 H, RBC 3.56 L, Hgb 9.2 L, Hct 29.1 L, MCV 81.7, MCH 25.8 L, MCHC 31.6 L, RDW Std Deviation 42.8, RDW Coeff of Zander 14.3, Plt Count 473 H, MPV 8.9, Immature Gran % (Auto) 4.400 H, Neut % (Auto) 65.5, Lymph % (Auto) 18.6 L, [place] % (Auto) 8.3, Eos % (Auto) 2.5, Baso % (Auto) 0.7, Absolute Neuts (auto) 10.3 H, Absolute Lymphs (auto) 2.94, Nucleated RBC % 0, Sodium 135 L, Potassium 4.2, Chloride 106, Carbon Dioxide 23.0, Anion Gap 6, BUN 30 H, Creatinine 1.33 H, Estim Creat Clear Calc 19.99, Est GFR (MDRD) Af Amer 49 L, Est GFR (MDRD) Non-Af 41 L, BUN/Creatinine Ratio 22.6 H, Glucose 165 H, Calcium 8.9, Phosphorus 3.5, Magnesium 1.5 L 02/12/24 07:26: POC Glucose 159 H Micro: Microbiology 02/07/24 15:40 Urine, Catheterized Urine Culture - Final Enterobacter cloacae complex 02/07/24 15:45 Blood Culture (Wb) - Anticubital Left Blood Culture - Preliminary No growth in 48 hours. 02/07/24 15:15 Blood Culture (Wb) - Anticubital Right Blood Culture - Preliminary No growth in 48 hours. Physical Exam Narrative Pelayo catheter draining clear yellow urine this morning. She is comfortable. Abdomen soft nontender and nondistended. Assessment & Plan Assessment/Plan (1) Gross hematuria: (2) Hydronephrosis: QUALIFIERS: Hydronephrosis type: unspecified Qualified Code(s): N13.30 - Unspecified hydronephrosis (3) Acute UTI: PLAN: Plan Remove Pelayo catheter She will need cystoscopy in the office and repeat renal ultrasound in a few weeks
[2024-02-12 10:48] LABS: Hemoglobin 9.6 g/dL (12.0-15.0)
[2024-02-12] MEDS: 0.9% Saline Lock 10 ML Syringe IV (10:51)
[2024-02-12] MEDS: Magnesium Sulfate 2 GM in Dextrose 5%-Water (100mL Bag) 100 ML IV (10:55)
--- NOTE | 2024-02-12 11:44 | PCM.DC.SUM ---
Providers Date of Admission: 02/07/24 Primary Care Physician: Dr. Chad Curtis MD Consultations 02/10/24 16:51 Consult: Urology Routine Consulting Provider: Nellie Rowell Reason for Consult: Gross hematuria EMERGENT Consult: No MD Notified: Yes Date Notified: 02/10/24 Time Notified: 16:51 Method of Notification: Verbal Reason For Visit: ACUTE ENCEPHALOPATHY, HYPERGLYCEMIA, UTI Diagnosis Discharge Diagnosis (1) Gross hematuria: Status: Acute Code(s): R31.0 - Gross hematuria (2) Hydronephrosis: Status: Acute Code(s): N13.30 - Unspecified hydronephrosis Qualifiers: Hydronephrosis type: unspecified Qualified Code(s): N13.30 - Unspecified hydronephrosis (3) Acute UTI: Status: Acute Code(s): N39.0 - Urinary tract infection, site not specified Plan Medications at Discharge Home Medications alendronate 70 mg tablet 70 mg PO QWEEK bone health 02/07/24 fluticasone propionate 50 mcg/actuation nasal spray,suspension 2 spray intranasal DAILY allergies 02/07/24 levothyroxine 50 mcg tablet 50 mcg PO DAILY thyroid 02/07/24 lisinopril 2.5 mg tablet 2.5 mg PO DAILY blood pressure 02/07/24 metoprolol tartrate 25 mg tablet 12.5 mg PO BID blood pressure 02/07/24 mometasone 0.1 % topical cream 1 applic topical DAILY rash 02/07/24 semaglutide 3 mg tablet (Rybelsus) 3 mg PO DAILY diabetes 02/07/24 simvastatin 20 mg tablet 20 mg PO QPM cholesterol 02/07/24 insulin glargine-yfgn 100 unit/mL (3 mL) subcutaneous pen 30 unit (0.3 mL) subcut DAILY #15 mL 02/10/24 insulin lispro 100 unit/mL subcutaneous pen (Humalog KwikPen (U-100) Insulin) 10 unit (0.1 mL) subcut TIDAC #15 mL 02/10/24 pen needle, diabetic 30 gauge x 5/16 (Pen Needle) #1,200 ea 02/10/24 fosfomycin tromethamine 3 gram oral packet 1 packet PO QODAY 1 day #1 ea 02/12/24 Hospital Course Summary of Care Provided Hospital Course: Mrs. Velasco is an 83-year-old white female who presented to the emergency department at [facility] on 02/07/2024 with generalized weakness and confusion. Per family report on presentation emergency department she had been getting more confused and weak at home. She was also having decreased oral intake. She denied any fevers or chills, nausea or vomiting but family was concerned she was getting dehydrated. Vital signs on presentation were only significant for mild tachycardia with a heart rate of 110. CBC showed a leukocytosis with a white count of 15 and thrombocytopenia ptosis with a platelet count of 544,000. She had significant hyponatremia with a sodium of 123 and a serum creatinine of 2.13 with an unknown baseline. Blood glucose was 556 and her calcium was 10.3. Her urinalysis was suggestive of infection. She was admitted to the PCU for ongoing monitoring due to her severe hyponatremia on presentation and she was started on an antibiotics and IV fluids. Her urine culture did show Enterobacter cloacae that was resistant to cefazolin. She was initially on ceftriaxone but we completed her antibiotic course with fosfomycin due to her antibiotic allergies and her overall comorbidities including CKD. Her mental status improved back to baseline after about 24 hours admission when she was on antibiotics and we improved her glycemic control. Her hemoglobin A1c was found to be markedly elevated at greater than 13. She was only taking metformin at home for this. I discussed extensively with family the importance of improved glycemic control and prevention of her infection as well as maintaining a normal baseline with regards to her mentation and we started insulin. Family was instructed in insulin dosing as she lives with them and they are there to supervise her on a 24-hour basis. At the time of discharge we had her on Lantus 30 units subcu daily and Humalog 10 units 3 times daily with meals. I have asked that she keep a blood sugar log with checking her blood sugars 4 times a day for now until she can follow-up with endocrinology. I did refer her to endocrinology at the time of discharge. Her renal function did improve and was 1.32 at the time of discharge. Her baseline is still unclear however I suspect we are closer to baseline at this time. I do anticipate that her renal dysfunction on presentation was related to an osmotic diuresis with her marked hyperglycemia. Blood cultures were negative at 48 hours. She was seen by physical and Occupational Therapy and they recommended ongoing home health however she deferred indicating her family was there. We actually had her discharged on 02/10/2024 and then while she was awaiting family to come see her she developed hematuria. With her gross hematuria, we discontinued the discharge and I consulted urology. She was evaluated by Dr. Rowell who placed a Pelayo and had it irrigated. The plan was to do a cystoscopy if her urine did not clear however her urine did clear and her hemoglobin stabilized on 02/12/2024. She suggested we continue the fosfomycin every other day for 2 more doses. She had a dose here prior to discharge and a prescription for another dose was sent to her local pharmacy and she is supposed to take this on Friday. Dr. Rowell would like to see her in the office in the next week and I have asked the family to call to schedule an appointment for her to be seen. She did want a walker which we were able to get for her at the time of discharge. Prescriptions for pen needles, basal insulin, and bolus insulin were sent to the local pharmacy at the time of discharge. The patient did indicate she has a glucometer and testing supplies at home and did not need any more of these at the time of discharge. I did discuss with her family and placed instructions in her discharge paperwork with regards to holding her home insulin or decreasing dosages when she is ill. We asked her to follow-up with her primary care physician within the next week and a call Dr. Desouza's office at the time of discharge to set up an outpatient appointment at Dr. Desouza's soonest availability. Discharge diagnoses: Enterobacter UTI Elevated serum creatinine Toxic/metabolic encephalopathy-resolved Uncontrolled DM-2 with hyperglycemia Hyponatremia-resolved Gross Hematuria Severe malnutrition Hypothyroidism Hypertension Seasonal allergies Hyperlipidemia Osteoporosis Physical Exam Const alert, oriented x3, no apparent distress and no limitations; Negative for average body habitus, healthy appearing or well nourished Constitutional Narrative: Thin, elderly, hard of hearing, white female, sitting up in bed, daughter at bedside, appears comfortable and nontoxic General Appearance: cooperative, comfortable, well kempt and well developed Orientation / Consciousness: awake, oriented to person, oriented to place, oriented to time and lethargic Exam Limitations: no limitations Nutritional Appearance: thin HEENT normocephalic, head/scalp atraumatic, moist oral mucous membranes and oropharynx normal; Negative for hearing grossly normal bilaterally HEENT Narrative: Extraordinarily hard of hearing, dentition is poor, Mallampati is 2, no thrush Eyes PERRL, EOMs intact bilaterally and conjunctivae normal Eyes Narrative: No scleral icterus Neck no lymphadenopathy and supple Neck Narrative: Trachea midline, no thyroid enlargement Resp normal respiratory effort, no retractions, no use of accessory muscles and clear to auscultation bilaterally Auscultation: Negative for rales, rhonchi or wheezes Cardio regular rate, regular rhythm, S1 normal heart sound, S2 normal heart sound, no murmurs, no rub, no gallops and no clicks Cardio Narrative: tachycardic GI normal to inspection, nondistended, normoactive bowel sounds, soft to palpation, non-tender and non-distended Extremity normal to inspection, full ROM and no clubbing, cyanosis or edema Extremity Narrative: Decreased lean muscle mass, pedal pulses and radial pulses are 2+ Skin no wounds, skin turgor normal and no jaundice Skin Narrative: Few scattered ecchymosis, no significant wounds or lesions Neuro oriented x3, moves all extremities and no focal motor deficits Speech: speech normal Psych affect normal Psych Narrative: Eye contact is good and patient interacts appropriately however is markedly hard of hearing Medical Records Data Medical Nutrition Assessment Dietitian: Malnutrition Criteria Met Start: 02/08/24 11:15 Freq: Status: Active Protocol: Document 02/08/24 11:15 EDUARDO (Rec: 02/08/24 11:15 [facility] [id number]) Nutrition Malnutrition Evidence of Malnutrition Exists Yes Malnutrition (severe): Acute Illness/Injury Evidenced By Suboptimal Energy Intake ( Severe),Weight Loss (Severe) Clinical Problem Acute Disease or Injury Related Malnutrition Etiology Pt with increased confusion resulting in decreased energy intake Signs/Symptoms as evidenced by 6.6% unintended wt loss x < 1 month and po intake meeting <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; 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 Problem Recommendation Dietitian Recommendations/Changes Will change diet to 1600 mira No Added Salt to better meet pt est nutritional needs Will order 4 oz glucerna shake 4x/day w/ medpass for increased nutrition if consumed Weight / BMI Weight Weight: 39.5 kg Body Mass Index (BMI) 16.9 ABG / Lab / Microbiology Data 02/12/24 10:39 02/12/24 06:15 Laboratory: Laboratory Results - last 24 hr 02/11/24 11:29: POC Glucose 350 H 02/11/24 16:21: POC Glucose 237 H 02/11/24 21:24: POC Glucose 259 H 02/12/24 06:15: WBC 15.8 H, RBC 3.56 L, Hgb 9.2 L, Hct 29.1 L, MCV 81.7, MCH 25.8 L, MCHC 31.6 L, RDW Std Deviation 42.8, RDW Coeff of Zander 14.3, Plt Count 473 H, MPV 8.9, Immature Gran % (Auto) 4.400 H, Neut % (Auto) 65.5, Lymph % (Auto) 18.6 L, [place] % (Auto) 8.3, Eos % (Auto) 2.5, Baso % (Auto) 0.7, Absolute Neuts (auto) 10.3 H, Absolute Lymphs (auto) 2.94, Nucleated RBC % 0, Sodium 135 L, Potassium 4.2, Chloride 106, Carbon Dioxide 23.0, Anion Gap 6, BUN 30 H, Creatinine 1.33 H, Estim Creat Clear Calc 19.99, Est GFR (MDRD) Af Amer 49 L, Est GFR (MDRD) Non-Af 41 L, BUN/Creatinine Ratio 22.6 H, Glucose 165 H, Calcium 8.9, Phosphorus 3.5, Magnesium 1.5 L 02/12/24 07:26: POC Glucose 159 H 02/12/24 10:39: Hgb 9.6 L Microbiology: Microbiology 02/07/24 15:40 Urine, Catheterized Urine Culture - Final Enterobacter cloacae complex 02/07/24 15:45 Blood Culture (Wb) - Anticubital Left Blood Culture - Preliminary No growth in 48 hours. 02/07/24 15:15 Blood Culture (Wb) - Anticubital Right Blood Culture - Preliminary No growth in 48 hours. D/C Instructions Discharge Diet: Low fat / Low cholesterol and 1800 Calorie Control Diet Discharge Activity: Return to Normal Activity Meaningful Use Info Meaningful Use Diagnoses (Choose all that apply): None applicable Discharge Plan Admission Admit Date/Time: 02/07/24 17:03 Primary Reason for Your Visit: Generalized weakness/confusion Attending Provider: Eileen Wharton Primary Care Provider: Chad Curtis Consulting Providers: Sejal Wagner; Nellie Rowell Instructions Additional Instructions / Restrictions: 1. We suspect your confusion on admission was from your blood sugars being high and a urinary tract infection 2. You have 1 more dose of antibiotics that you will need to take on Friday 3. As we discussed you will go home on insulin as your blood sugars are very poorly controlled. Please check your blood sugars in the morning before you eat, at lunch before you eat, at dinner before you eat, and at bedtime. Please record these and take them to your first appointment with endocrinology-Dr. Desouza. 4. Please call Dr. Desouza's office later today or tomorrow to set up an appointment to be seen at her first availability 5. Please call Dr. Rowell's office later today or tomorrow to set up an appointment to be seen next week 6. Only give her mealtime insulin if she is eating. If the patient is not eating and is ill decrease her basal insulin from 30 units to 15 units Discharge Orders/Prescriptions Prescriptions: New insulin glargine-yfgn 100 unit/mL (3 mL) Insulin Pen 30 unit subcut DAILY Qty: 15 1RF insulin lispro [Humalog KwikPen Insulin] 100 unit/mL Insulin Pen 10 unit subcut TIDAC Qty: 15 1RF (DME) pen needle, diabetic [Pen Needle] 30 gauge x 5/16 needle See Rx Instructions .Route Qty: 1200 0RF Rx Instructions: As directed fosfomycin tromethamine 3 gram packet 1 packet PO QODAY 1 Days Qty: 1 0RF Rx Instructions: Take this on 02/14/2024 Continued alendronate 70 mg tablet 70 mg PO QWEEK levothyroxine 50 mcg tablet 50 mcg PO DAILY simvastatin 20 mg tablet 20 mg PO QPM fluticasone propionate 50 mcg/actuation spray,suspension 2 spray INTRANASAL DAILY lisinopril 2.5 mg tablet 2.5 mg PO DAILY mometasone 0.1 % cream 1 applic topical DAILY metoprolol tartrate 25 mg tablet 12.5 mg PO BID Rybelsus 3 mg tablet 3 mg PO DAILY Discontinued metformin 500 mg tablet 500 mg PO BID loratadine [Allerclear] 10 mg tablet 10 mg PO DAILY Referrals / Follow Up: Chad Curtis MD [Primary Care Provider] - Within 1 Week Sav Desouza MD [Med Staff - Courtesy Staff] - Within 2 Weeks (Call for an appointment to be seen and please take your recording of your blood glucose levels) Disposition Disposition (needs filled in before D/C Order can be placed): Home, Self Care
[2024-02-12 12:03] LABS: Bedside Glucose 205 mg/dL (74-106)
--- NOTE | 2024-02-12 13:16 | CASEMGMT ---
Patient has order for discharge. RN CM called and updated [facility] regarding discharge, start of care planned for tomorrow. JOSEF GARCIA in to patient room to update patient daughters. RN CM updated daughters regarding [facility] start of care for tomorrow. Daughters had no further questions or concerns.
--- NOTE | 2024-02-12 13:44 | PHA.DC.MC.R ---
Pharmacy [facility] Service has performed discharge medication reconciliation and counseling for this patient. 1. FOSFOMYCIN 3GM X1 02/13 The patient's discharge medication list was reviewed for discrepancies and discrepancies were resolved. The patient was counseled on the following discharge medications and changes in medications for homegoing were reviewed. The Reason for Use, instructions for use, and potential side effects were reviewed for all new medications. The patient's questions regarding all of their medications were answered. The patient was able to verbally demonstrate an understanding of their discharge medications. Medications at Discharge Home Medications alendronate 70 mg tablet 70 mg PO QWEEK bone health 02/07/24 fluticasone propionate 50 mcg/actuation nasal spray,suspension 2 spray intranasal DAILY allergies 02/07/24 levothyroxine 50 mcg tablet 50 mcg PO DAILY thyroid 02/07/24 lisinopril 2.5 mg tablet 2.5 mg PO DAILY blood pressure 02/07/24 metoprolol tartrate 25 mg tablet 12.5 mg PO BID blood pressure 02/07/24 mometasone 0.1 % topical cream 1 applic topical DAILY rash 02/07/24 semaglutide 3 mg tablet (Rybelsus) 3 mg PO DAILY diabetes 02/07/24 simvastatin 20 mg tablet 20 mg PO QPM cholesterol 02/07/24 insulin glargine-yfgn 100 unit/mL (3 mL) subcutaneous pen 30 unit (0.3 mL) subcut DAILY #15 mL 02/10/24 insulin lispro 100 unit/mL subcutaneous pen (Humalog KwikPen (U-100) Insulin) 10 unit (0.1 mL) subcut TIDAC #15 mL 02/10/24 pen needle, diabetic 30 gauge x 5/16 (Pen Needle) #1,200 ea 02/10/24 fosfomycin tromethamine 3 gram oral packet 1 packet PO QODAY 1 day #1 ea 02/12/24
[2024-02-12 14:42] VITALS: BP 97/54; PULSE 98; RESP 18; TEMP 36.8; O2SAT 95
== END 2024-02-12 15:59 | disposition home or self-care (01) | DRG 689 ==
LOC: ED 16:21 → PCU 16:29
PROVIDERS: Admitting Provider Student in an Organized Health Care Education/Training Program; Emergency Provider Emergency Medicine; PCP Family Medicine; Visit Provider Internal Medicine
DX: N13.6 Pyonephrosis (principal); E43 Unspecified severe protein-calorie malnutrition; G92.8 Other toxic encephalopathy; E87.1 Hypo-osmolality and hyponatremia; Z68.1 Body mass index [BMI] 19.9 or less, adult; E11.22 Type 2 diabetes mellitus with diabetic chronic kidney disease; E03.9 Hypothyroidism, unspecified; B96.89 Other specified bacterial agents as the cause of diseases classified elsewhere; E11.65 Type 2 diabetes mellitus with hyperglycemia; Z79.4 Long term (current) use of insulin; I12.9 Hypertensive chronic kidney disease with stage 1 through stage 4 chronic kidney disease, or unspecified chronic kidney disease; N18.9 Chronic kidney disease, unspecified; E78.5 Hyperlipidemia, unspecified; J30.2 Other seasonal allergic rhinitis; Z79.83 Long term (current) use of bisphosphonates; Z79.84 Long term (current) use of oral hypoglycemic drugs; Z79.01 Long term (current) use of anticoagulants; M81.0 Age-related osteoporosis without current pathological fracture; H91.90 Unspecified hearing loss, unspecified ear; R31.0 Gross hematuria
CPT/HCPCS: 36415; 74176; 80048; 81001; 82962; 83036; 83605; 83735; 84100; 84300; 84484; 85018; 85025; 87040; 87077; 87086; 87088; 87186; 97162; 97165; 97530; 97535; 99252; 99284; J7030; A4216; G0463

== ENCOUNTER → 2024-03-09 | Outpatient (CLI) | payer MEDICARE, OTHER, SELFPAY ==
--- NOTE | 2024-03-09 12:33 | CT_ITS ---
STUDY: CT ABDOMEN AND PELVIS WITHOUT CONTRAST REASON FOR EXAM: Female, 83 years old. HYDRONEPHROSIS/HEMATURIA RADIATION DOSAGE (If Supplied By Facility): CTDIvol = ( 6.04 ) mGy, DLP = ( 315.8 ) mGycm TECHNIQUE: Transaxial images were obtained from the dome of the diaphragm to the symphysis pubis without oral contrast, and without intravenous contrast. Sagittal and coronal images were reconstructed. Individualized dose optimization techniques were used for this CT. COMPARISON: Comparison is made with prior study dated February 10, 2024. FINDINGS: The visualized lung bases are unremarkable. Coronary artery calcification. Normal liver. Normal gallbladder and extrahepatic biliary system. Normal spleen. Normal pancreas. Normal bilateral adrenal glands. Becq-rm-jrrganto degree of bilateral hydronephrosis and hydroureter down to the urinary bladder. Normal visualized stomach. Normal small intestine. There are scattered colonic diverticula consistent with diverticulosis. The appendix is visualized and appears normal. There is diffuse atherosclerotic calcification of the abdominal aorta and its major visceral branches, without a demonstrated aneurysm. Normal inferior vena cava. Normal retroperitoneum. Diffuse circumferential wall thickening of the bladder wall. This is unchanged. Fibroid uterus. Normal abdominal wall. There are diffuse degenerative changes of the visualized lumbar spine. Dextroscoliosis. CT/Abdomen/Pelvis without Cont IMPRESSION: Diffuse bladder wall thickening. Bilateral hydronephrosis and hydroureter. Electronically Signed: Niko Calix MD at 13:38 EDT ,
== END | disposition home or self-care (01) ==
LOC: CT 12:31
PROVIDERS: PCP Family Medicine; Referring Provider Urology; Visit Provider Urology
DX: R31.0 Gross hematuria (principal); N13.30 Unspecified hydronephrosis
CPT/HCPCS: 74176

== ENCOUNTER 2024-03-25 09:54 | Day surgery (SDC) | payer MEDICARE, OTHER, SELFPAY ==
--- NOTE | 2024-03-23 13:04 | EKG12_ITS ---
Test Reason : PREOP Blood Pressure : / mmHG Vent. Rate : 100 BPM Atrial Rate : 100 BPM P-R Int : 142 ms QRS Dur : 074 ms QT Int : 336 ms P-R-T Axes : 055 000 071 degrees QTc Int : 433 ms Normal sinus rhythm Normal ECG Confirmed by Kevin Marinelli ([id number]), marketing editor LAQUITA GÓMEZ ([id number]) on 03/24/2024 8:53:54 AM Referred By: Nellie Rowell Confirmed By:Kevin Marinelli
[2024-03-23 13:38] LABS: Hematocrit 36.5 % (37-47); Hemoglobin 11.3 g/dL (12.0-15.0); Mean Corpuscular Hgb 26.1 pg (27.0-32.0); Mean Corpuscular Volume 84.3 fL (81-99); Mean Platelet Vol. 8.7 fl (6.2-12.0); Platelet Count 379 K/mm3 (150-450); RBC Distribution Width CV 15.3 % (11.6-14.6); RBC Distribution Width SD 46.8 fl (35.1-43.9); Red Blood Count 4.33 M/mm3 (4.2-5.4); White Blood Count 10.4 K/mm3 (4.4-11.0)
[2024-03-23 14:32] LABS: Anion Gap 8 (5-15); BUN 37 mg/dL (7-18); BUN/Creat Ratio 27.4 RATIO (10-20); Calcium,Total 10.5 mg/dL (8.5-10.1); Chloride 106 mmol/L (98-107); Creatinine, Serum 1.35 mg/dL (0.55-1.02); EST Glomerular Filtration Rate 40 mL/min (>60); Est Glom Filt Rate - Afr Amer 48 mL/min (>60); Glucose 88 mg/dL (74-106); Potassium 4.2 mmol/L (3.5-5.1); Sodium Level 139 mmol/L (136-145)
[2024-03-23 14:53] LABS: Hemoglobin A1c 8.3 % (3.8-5.6)
[2024-03-25] VITALS (10 sets, daily range): BP systolic 69–145; BP diastolic 29–89; PULSE 55–81; RESP 14–166; TEMP 36.4–37.1; O2SAT 92–100; BMI 20.3
[2024-03-25] MEDS: Lactated Ringers 1,000 ML 15 ML IV (10:55)
--- NOTE | 2024-03-25 12:50 | BLA_PTH ---
PATIENT: KELSEY PURI LOC: [facility] U#:[id number] AGE/SX: 83/F ROOM: RE03/25/[address]: Dr. Nellie Rowell MD : [id number] BED: DIS: 03/25/2024 SPEC #: [id number] RECD: 03/25/24 18:19 STATUS: MARIELA TATE #: [id number] JIMBO: 03/25/24 12:[address]: Nellie Rowell DEPT: SURGICAL PATHOLOGY RECD BY: Eleni Jose ENTERED: 03/26/24 11:03 SP TYPE: BLADDER BX OTHR DR: Dr. Chad Curtis MD Tissues: Urinary bladder, NOS Procedures: Surgery Specimen Level IV HEADER OPERATION: Bilateral retrogrades, bilateral ureteroscopy PRE-OP DIAGNOSIS: Hydronephrosis, urinary tract infection, hematuria TISSUE SUBMITTED: Bladder biopsy MICROSCOPIC DIAGNOSIS Urinary bladder, biopsy: Chronic follicular cystitis. AM/mr 03/30/2024 MICROSCOPIC DESCRIPTION Slides are reviewed. GROSS DESCRIPTION Received in fixative is one container labeled with the patient's name and designated Bladder biopsy. The specimen consists of two irregular fragments of light obrien soft tissue that in aggregate measure 0.6 x 0.2 x 0.1 cm. The specimen is totally submitted in one cassette. AM/mr 03/26/2024 TC:3 CPT:20532
[2024-03-25 15:16] LABS: Bedside Glucose 120 mg/dL (74-106)
[2024-03-25] MEDS: Cefazolin 2 GM in 0.9% Normal Saline (100mL Bag) 100 ML IV (16:24)
--- NOTE | 2024-03-25 17:26 | DCINST_ITS ---
Discharge Instructions Diet Discharge Diet: No restrictions Activity Discharge Activity: Return to Normal Activity Dressing / Incision Call your doctor if you observe: Fever of 101 or Higher, Inability to urinate and Inability to have a bowel movement Follow Up Care Please Follow Up With: Nellie Rowell MD When: The office will call to make arrangements. Test Results: Test results from this visit will be discussed in further detail at your follow- up appointment, if applicable. Discharge Plan Admission Attending Provider: Nellie Rowell Primary Care Provider: Chad Curtis Instructions Print Language: Ethiopian Discharge Orders/Prescriptions Prescriptions: New oxycodone-acetaminophen [Percocet] 5-325 mg tablet 1 tab PO Q8H PRN (Reason: pain) 1 Days Qty: 3 0RF cephalexin 500 mg capsule 500 mg PO Q12 3 Days Qty: 6 0RF Continued insulin lispro [Humalog KwikPen Insulin] 100 unit/mL Insulin Pen 3 unit subcut TIDAC insulin glargine-yfgn 100 unit/mL (3 mL) Insulin Pen 15 unit subcut DAILY alendronate 70 mg tablet 70 mg PO QWEEK levothyroxine 50 mcg tablet 50 mcg PO DAILY simvastatin 20 mg tablet 20 mg PO QPM fluticasone propionate 50 mcg/actuation spray,suspension 2 spray INTRANASAL DAILY lisinopril 2.5 mg tablet 2.5 mg PO 1200 mometasone 0.1 % cream 1 applic topical DAILY metoprolol tartrate 25 mg tablet 12.5 mg PO BID Rybelsus 3 mg tablet 3 mg PO DAILY (DME) pen needle, diabetic [Pen Needle] 30 gauge x 5/16 needle See Rx Instructions .Route Qty: 1200 0RF Rx Instructions: As directed Referrals / Follow Up: Chad Curtis MD [Primary Care Provider] - Disposition Disposition (needs filled in before D/C Order can be placed): Home, Self Care
--- NOTE | 2024-03-25 17:29 | PCM.OPRPT ---
Report of Operation Date of Procedure: 03/25/24 Pre-Operative Diagnosis: Bilateral hydronephrosis, gross hematuria Post-Operative Diagnosis: Same Surgery/Procedure Performed:: Cystoscopy, bilateral retrograde pyelogram, bilateral ureteroscopy, bladder biopsy with fulguration Surgeon: Nellie Rowell Type of Anesthesia: General Specimen's removed: Bladder biopsy Description of Procedure: The patient is an 83-year-old female who had gross hematuria while hospitalized as well as left-sided hydronephrosis. When she was reevaluated she had developed bilateral hydronephrosis. She now presents for further evaluation under anesthesia. Informed consent was obtained. The patient was taken to the operating room and placed on the operating room table. Anesthesia monitored the head, neck, airway, IV access and vital signs throughout the case. Once anesthesia was appropriately administered, she was placed into the dorsolithotomy position and was prepped and draped in usual sterile fashion. There was no prolapse identified. The cystoscope was inserted through the urethra under direct visualization into the urinary bladder. The bladder was somewhat funnel-shaped with a very thin mucosa with increased vascularity to the surface of the mucosa. There were a few areas of erythema identified in the posterior bladder wall. Bilateral ureteral orifices were patulous. An 8 [place] cone-tip catheter was used for gentle cannulation of each ureteral orifice. Contrast was injected in retrograde fashion under fluoroscopic visualization. There was dilation of the ureter in the renal pelvis without dilation of the calyces. This was on both sides. At this time a 0.035 Glidewire was passed in retrograde fashion into the renal pelvis. A flexible ureteroscope easily advanced over the wire all the way up to the renal pelvis without any difficulty or evidence of obstruction. The wire was then removed and the collecting system was visualized in its entirety. This was done on both sides revealing no evidence of abnormality other than the dilation. At this time a flexible biopsy forcep was used to to take biopsies of the erythematous lesions in the posterior bladder wall. 2 areas were biopsied. The base was fulgurated for hemostatic control and tissue treatment. The bladder was then emptied and the cystoscope was removed. The patient was awakened and taken to the recovery room in good condition. There were no complications during the procedure. Grafts/Implants Used: None Complications none Admit VTE Documentation VTE Present on Admission: Yes VTE Mechan Device Prophylaxis: SCD's VTE Pharm Prophylaxis ordered?: No Reason prophylaxis not ordered:: Treatment Not Indicated
[2024-03-25 17:40] LABS: Bedside Glucose 122 mg/dL (74-106)
--- NOTE | 2024-03-25 17:49 | SUR.PHASEI ---
AT 17:25 BP DROPPED TO 69/42. BED PLACED IN TRENDELENBERG. IV WIDE OPEN RATE. AT 1730, BP 74/29, DR KAPLAN NOTIFIED. IV BAG PLACED IN PRESSURE BAG. O2 AT 4L/NC PLACED ON PATIENT
[2024-03-26 16:17] LABS: Bedside Glucose 160 mg/dL (74-106)
[2024-03-26 16:17] LABS: Bedside Glucose 162 mg/dL (74-106)
== END 2024-03-25 19:13 | disposition home or self-care (01) ==
LOC: SDC 09:58 → AC 10:04
PROVIDERS: Anesthesiology; PCP Family Medicine; Referring Provider Urology; Visit Provider Urology
PROC: 0TJ98ZZ Inspection of Ureter, Via Natural or Artificial Opening Endoscopic (ICD-10-PCS; CPT 52352; principal; 2024-03-25 12:40)
DX: N30.31 Trigonitis with hematuria (principal); E11.9 Type 2 diabetes mellitus without complications; N13.30 Unspecified hydronephrosis; Z98.51 Tubal ligation status; E07.9 Disorder of thyroid, unspecified; E78.5 Hyperlipidemia, unspecified; I10 Essential (primary) hypertension; Z87.448 Personal history of other diseases of urinary system
CPT/HCPCS: 52354; 00910; 36415; 76000; 80048; 82962; 83036; 84443; 85027; 88305; 93005; J7120; J2310; J2405

== ENCOUNTER → 2024-09-13 | Outpatient (CLI) | payer MEDICARE, OTHER, SELFPAY | END | disposition home or self-care (01) | LOC: US 12:49 | PROVIDERS: PCP Family Medicine; Referring Provider Urology; Visit Provider Urology | DX: N13.30 Unspecified hydronephrosis (principal) | CPT/HCPCS: 76770 ==

== ENCOUNTER → 2024-11-22 | Outpatient (CLI) | payer MEDICARE, OTHER, SELFPAY ==
--- NOTE | 2024-11-22 13:52 | US_ITS ---
HISTORY: HYDRONEPHROSIS, RETENTION. TECHNIQUE: Nunez scale and color doppler images were obtained of the kidneys. 80 images. COMPARISON: 09/13/2024. FINDINGS: RIGHT KIDNEY: 9.7 cm in length. Cortical thickness 1.5 cm. Mild-moderate hydronephrosis. No gross renal mass demonstrated. LEFT KIDNEY: 9.2 cm in length. Cortical thickness 1.3 cm. Mild hydronephrosis. No gross renal mass demonstrated. URINARY BLADDER: Lobulated contour with a 3 mm wall thickness. Volume of 44 cc. US/Kidney and Bladder IMPRESSION: Mild-moderate right and mild left hydronephrosis. Electronically Signed: Ayla Milligan MD at 8:27 EST ,
[2024-11-22 16:09] LABS: ALB/GLOB Ratio 0.6 RATIO (0.9-2.4); AST(SGOT) 20 U/L (15-37); Alanine Aminotransfer ALT/SGPT 23 U/L (13-56); Albumin, Serum 3.2 g/dL (3.2-5.0); Alkaline Phosphatase 95 U/L (45-117); Anion Gap 5 (5-15); BUN 34 mg/dL (7-18); BUN/Creat Ratio 23.4 RATIO (10-20); Calcium,Total 9.6 mg/dL (8.5-10.1); Chloride 103 mmol/L (98-107); Cholesterol 110 mg/dL (200); Creatinine, Serum 1.45 mg/dL (0.55-1.02); EST Glomerular Filtration Rate 37 mL/min (>60); Est Glom Filt Rate - Afr Amer 44 mL/min (>60); Globulin 5.2 g/dL (2.2-4.2); Glucose 154 mg/dL (74-106); High Density Lipoprotein 50 mg/dL; Potassium 4.3 mmol/L (3.5-5.1); Protein, Total 8.4 g/dL (6.4-8.2); Sodium Level 132 mmol/L (136-145); Triglycerides 132 mg/dL; Very Low Density Lipoprotein 26 mg/dL (5-40)
[2024-11-22 17:46] LABS: PTHIN 73.4 pg/mL (18.4-80.1)
[2024-11-22 17:53] LABS: Vitamin D,25 Hydroxy 28.9 ng/mL
== END | disposition home or self-care (01) ==
PROVIDERS: Nurse Practitioner Family; PCP Family Medicine; Referring Provider Urology; Visit Provider Urology
DX: N13.30 Unspecified hydronephrosis (principal); E11.9 Type 2 diabetes mellitus without complications; R33.9 Retention of urine, unspecified; E83.52 Hypercalcemia; E87.5 Hyperkalemia
CPT/HCPCS: 36415; 76770; 80053; 80061; 82306; 83970

== ENCOUNTER → 2024-11-30 | Outpatient (CLI) | payer MEDICARE, OTHER, SELFPAY ==
[2024-11-30 22:42] LABS: Osmolality, Serum 308 mOsm/KG (280-301)
== END | disposition home or self-care (01) ==
LOC: LAB 16:55
PROVIDERS: PCP Family Medicine; Referring Provider Internal Medicine Endocrinology, Diabetes & Metabolism; Visit Provider Internal Medicine Endocrinology, Diabetes & Metabolism
DX: E87.1 Hypo-osmolality and hyponatremia (principal)
CPT/HCPCS: 36415; 83930

== ENCOUNTER → 2025-01-13 | Outpatient (CLI) | payer MEDICARE, OTHER, SELFPAY ==
--- NOTE | 2025-01-13 13:00 | US_ITS ---
PROCEDURE: KIDNEY AND BLADDER REASON FOR EXAM: URINARY RETENTION TECHNIQUE: Bilateral renal ultrasound. COMPARISON: None. FINDINGS: Normal renal sizes, parenchymal thicknesses, and echotextures. Mild degree of bilateral hydronephrosis. This does not improve on the postvoid study. No cysts or large solid renal masses. RIGHT Kidney Size: 10.2 cm x 4.8 cm x 5 cm Volume: 127.5 mL Cortical Thickness (if discernible): 1.4 cm (>6mm is normal) LEFT Kidney Size: 8.9 cm x 3.3 cm x 4.2 cm Volume: 64.3 mL Cortical Thickness (if discernible): 1.2 cm (>6mm is normal) US/Kidney and Bladder IMPRESSION: Mild bilateral hydronephrosis. Reading Location: [id number]
[2025-01-13 14:41] LABS: Anion Gap 12 (5-15); BUN 35 mg/dL (4-19); BUN/Creat Ratio 24.9 RATIO (10-20); Carbon Dioxide 21.2 mmol/L (21.0-32.0); Chloride 102 mmol/L (98-108); Creatinine, Serum 1.42 mg/dL (0.70-1.20); EST Glomerular Filtration Rate 36 (>60); Glucose 137 mg/dL (70-99); Potassium 4.5 mmol/L (3.3-5.1); Sodium Level 135 mmol/L (133-145)
== END | disposition home or self-care (01) ==
PROVIDERS: PCP Family Medicine; Referring Provider Urology; Visit Provider Urology
DX: R33.9 Retention of urine, unspecified (principal)
CPT/HCPCS: 36415; 76770; 80048